=== PATIENT | female | born 1990 | race Caucasian/White ===

== ENCOUNTER 2017-08-20 19:23 | Emergency (ER) | payer MEDICAID, SELFPAY ==
[2017-08-20 19:24] VITALS: BP 140/85; PULSE 97; RESP 16; TEMP 36.8; O2SAT 100
--- NOTE | 2017-08-20 19:39 | EKG12_ITS ---
Test Reason : CP Blood Pressure : / mmHG Vent. Rate : 090 BPM Atrial Rate : 090 BPM P-R Int : 130 ms QRS Dur : 080 ms QT Int : 350 ms P-R-T Axes : 037 039 033 degrees QTc Int : 428 ms Normal sinus rhythm Normal ECG Confirmed by FERCHO JAY MD ([id number]), book editor OLAMIDE TOWNSEND ([id number]) on 08/22/2017 12:48:40 PM Referred By: Confirmed By:FERCHO JAY MD
--- NOTE | 2017-08-20 19:42 | NURSING ---
NO OLD EKG
--- NOTE | 2017-08-20 19:55 | RAD_ITS ---
STUDY: X-RAY CHEST REASON FOR EXAM: Female, 27 years old. Chest pain TECHNIQUE: Single AP portable view of the chest. COMPARISON: None. FINDINGS: The lungs are clear and expanded. There is no demonstrated pleural abnormality. Normal size heart. Normal mediastinum and ryne. Normal visualized pulmonary arteries. Normal visualized aortic arch and descending thoracic aorta. Normal visualized thoracic spine. Normal visualized ribs, clavicles, and shoulders. There is no demonstrated abnormality of the visualized soft tissue structures of the upper abdomen. RAD/Chest 1 View (Portable) IMPRESSION: Normal x-ray examination of the chest. Electronically Signed: Bola Krishna MD at 20:24 EST Tel , Service support ,
[2017-08-20 20:03] LABS: Absolute Lymphocyte Count 2.74 X10^3/ul (0.83-4.51); Absolute Neutrophil Count 4.8 X10^3/uL (2.0-7.7); Basophil# 0.02 X10^3/uL; Basophil% 0.2 % (0-1); Eosinophil# 0.18 X10^3/uL; Eosinophils% 2.2 % (0-5); Hematocrit 37.7 % (37-47); Hemoglobin 12.8 g/dl (12.0-15.0); Lymphocyte # 2.74 X10^3/ul (4.0); Lymphocyte % 33.3 % (19-41); Mean Corpuscular Hgb 28.6 pg (27.0-32.0); Mean Corpuscular Volume 84.3 fL (81-99); Mean Platelet Vol. 9.9 fl (6.2-12.0); Monocyte# 0.47 X10^3/uL; Monocyte% 5.7 % (0-10); Neutrophil # 4.82 X10^3/uL (2.7-7.7); Neutrophil % 58.5 % (47-70); Platelet Count 234 K/mm3 (150-450); RBC Distribution Width CV 12.4 % (11.6-14.6); RBC Distribution Width SD 38.1 fl (35.1-43.9); Red Blood Count 4.47 M/mm3 (4.2-5.4); White Blood Count 8.2 K/mm3 (4.4-11.0)
[2017-08-20 20:04] LABS: POSITIVE COUNT NO; POSITIVE DIFFERENTIAL NO; POSITIVE MORPHOLOGY NO
[2017-08-20 20:22] LABS: D-Dimer Quantitative (DVT/PE) < 0.27 FEU/ug/m (0.27-0.49)
[2017-08-20 20:27] LABS: BUN 12 mg/dL (7-18); Creatinine, Serum 0.67 mg/dL (0.55-1.02); Estimated Creatinine Clearance 106.98 ml/min; Glucose 123 mg/dL (74-106)
[2017-08-20 20:28] LABS: Anion Gap 10 (5-15); BUN/Creat Ratio 17.9 RATIO (10-20); Calcium,Total 8.7 mg/dL (8.5-10.1); Chloride 109 mmol/L (98-107); EST Glomerular Filtration Rate 110 mL/min (>60); Est Glom Filt Rate - Afr Amer 133 mL/min (>60); Potassium 3.7 mmol/L (3.5-5.1); Sodium Level 142 mmol/L (136-145)
--- NOTE | 2017-08-20 20:34 | ED.VISSUMM ---
- ER Visit Summary Date of Service: 08/20/17 Chief Complaint: [Bilateral leg pain and chest pain] History of Present Illness: The patient is a 27 F [presents to the emergency department with complaint of pain in both legs started around 2 PM. Patient described pain from her hips down to her feet bilaterally. Patient states that she has had multiple episodes of similar pain that typically resolves without any treatment. Patient states that after she developed this pain she developed some left-sided chest discomfort which is an achy pain that is similar to pain she has had before when she has anxiety. Patient tells me she is not really concerned about her chest but more concerned about her legs. Patient was worried about blood clots in her legs. Patient states that she had a hernia repair about a month ago and she is on an oral contraceptive. Patient denies any recent travel. Patient does not have a history of PE or DVT.] Physical Examination: [HEENT-PERRLA, EOMI. Cranial nerves II through XII grossly intact. TMs clear. Mucous membranes moist. No adenopathy. Cardiovascular-regular rate and rhythm without murmur or ectopy Lungs-clear to auscultation, chest wall stable without crepitus or subcu emphysema Abdomen-normoactive bowel sounds, soft, nontender, no rebound or rigidity, no peritoneal signs. Back exam-no tenderness on palpation. No erythema or crepitus noted. Negative straight leg raises. Deep tendon reflexes plus 2 out of 4 bilaterally at the patella and Achilles. Patient has normal L5 extension bilaterally. Patient has normal sensation to light touch. Extremities-intact ?4, normal range of motion, normal pulses, atraumatic]. Negative Homans sign bilaterally. No edema, no cellulitis, atraumatic. Test Results: [EKG obtained on arrival showed a sinus rhythm with rate of 90 bpm with no acute ST segment changes. CBC with differential was normal. Chemistries were normal. Troponin was less than 0.02. D-dimer was normal at less than 0.27. Chest x-ray was normal. Emergency Department Course and Treatment: [No treatment indicated] Treatment Plan: [Patient advised to follow-up with her primary care physician within next 3-5 days.] Disposition: Discharged to home in stable condition] Impression: [Bilateral leg womf-udntblmz-vimrjgal uncertain Chest hsvm-orwomnnjfh-fmryejh anxiety related] This note was generated with Dragon dictation software. It may contain incorrect words, spelling, and punctuation that were not noted in review of the chart prior to signing ED Disposition - Plan for ED Patient: Chief Complaint: Chest Pain Referrals: Care Physician,No Primary [Primary Care Provider] -
--- NOTE | 2017-08-20 20:37 | ED.DEP ---
ED Disposition - Plan for ED Patient: Chief Complaint: Chest Pain Instructions: ED Chest Pain NonCardiac Referrals: Care Physician,No Primary [Primary Care Provider] - Johnathan Shepard III, MD [STAFF PHYSICIAN] - 3-5 Days
[2017-08-20 20:41] VITALS: BP 110/77; PULSE 79; RESP 16; O2SAT 98
--- NOTE | 2017-08-20 20:42 | ED.RN ---
REVIEWED D/C INSTRUCTIONS, FOLLOW UP CARE, AND S/S THAT WOULD WARRANT A RETURN TO THE ED WITH PT. PT VERBALIZED AN UNDERSTANDING AND DENIES FURTHER QUESTIONS FOR THIS RN. PT SKIN P/W/D, RESP EVEN AND UNLABORED, PT A&O X 3, NO DISTRESS NOTED. PT AMBULATED OUT OF ED, GAIT STEADY.
== END 2017-08-20 20:45 | disposition home or self-care (01) ==
LOC: ED 19:52
PROVIDERS: Emergency Provider Emergency Medicine
DX: M79.605 Pain in left leg (principal); M79.604 Pain in right leg; R07.9 Chest pain, unspecified
CPT/HCPCS: 71045; 80048; 84484; 85025; 85379; 93005; 99285; A4216

== ENCOUNTER 2017-09-03 13:58 | Emergency (ER) | payer MEDICAID, SELFPAY ==
[2017-09-03 13:59] VITALS: BP 114/74; PULSE 114; RESP 18; TEMP 36.8; O2SAT 97; BMI 29.8
--- NOTE | 2017-09-03 15:07 | ED.DCSUM_ITS ---
- ER Visit Summary Date of Service: 09/03/17 Chief Complaint: Sore throat History of Present Illness: The patient is a 27 F who presents with sore throat since last night. She notes little to no cough. No significant rhinorrhea. No fevers. No nausea vomiting. No rash. Physical Examination: Febrile vital signs are stable Gen: Well-nourished well-developed Head: Normocephalic atraumatic Eyes: Perrl EOMI ENT: TMs clear no rhinorrhea moist mucous membranes mild oral pharyngeal erythema Neck: Supple no lymphadenopathy no JVD nontender CVS: Regular rate rhythm no murmurs normal S1-S2 Respiratory: No distress clear to auscultation bilaterally chest nontender Abdomen: Soft nontender nondistended normal bowel sounds no masses Back: Nontender Extremity: Nontender no edema Skin: Normal color no rash Neuro: alert orientated ?3 CN II-XII intact normal strength sensation reflexes gait cerebellar Psych: Normal affect normal mood Test Results: Strep is negative Emergency Department Course and Treatment: To be discharged home with supportive care Impression: 1. Pharyngitis This note was generated with [employer] dictation software. It may contain incorrect words, spelling, and punctuation that were not noted in review of the chart prior to signing ED Disposition - Plan for ED Patient: Disposition: Home or Assisted Living Chief Complaint: Sore Throat Instructions: ED Pharyngitis Viral Referrals: Care Physician,No Primary [Primary Care Provider] - Teresa Ayers DO [STAFF PHYSICIAN] - 10-14 Days if not better
[2017-09-03 15:14] VITALS: PULSE 99; RESP 16; O2SAT 99
== END 2017-09-03 15:15 | disposition home or self-care (01) ==
PROVIDERS: Emergency Provider Emergency Medicine
DX: J02.9 Acute pharyngitis, unspecified (principal); M79.1 Myalgia
CPT/HCPCS: 87880; 99282

== ENCOUNTER 2017-09-09 02:29 | Emergency (ER) | payer MEDICAID, SELFPAY ==
[2017-09-09 02:30] VITALS: BP 134/84; PULSE 73; RESP 18; TEMP 36.6; O2SAT 100; BMI 30.8
--- NOTE | 2017-09-09 02:38 | ED.VISSUMM ---
- ER Visit Summary Date of Service: 09/09/17 Chief Complaint: [] Midthoracic back pain History of Present Illness: The patient is a 27 F complaining of midthoracic back pain that came on 8 PM gradually over the course of minutes. She felt fine prior. No urinary symptoms. She has had this multiple times in the past. Seen in June in our emergency department at that time. Given a muscle relaxant. Try that tonight with minimal relief. Came in for further evaluation. Physical Examination: Vital signs reviewed General: Well-nourished well-developed Head: Normocephalic atraumatic Eyes: Pupils equal round and reactive to light extraocular movements intact ENT: TMs clear no hemotympanum no trauma Neck: Nontender full range of motion Cardiovascular: Regular rate rhythm no murmurs normal S1-S2 Respiratory: No distress clear to auscultation bilaterally chest nontender Abdomen: Soft nontender nondistended normal bowel sounds no masses Back: Midthoracic paraspinals and right-sided lower ribs. No CVA tenderness. Mild decreased range of motion secondary to pain. Extremities: Nontender active range of motion ?4 extremities no trauma Skin: Normal color no trauma Neuro alert oriented cranial nerves II through XII intact normal strength sensation reflexes Test Results: [] Emergency Department Course and Treatment: I feel the patient has musculoskeletal back pain. I do not feel she needs lab work. I do not feel she has a kidney stone. She was given oxycodone here and will use Tylenol and ice at home. Do not feel she needs imaging. Treatment Plan: [] Disposition: [] Impression: [] Midthoracic back pain This note was generated with [employer] dictation software. It may contain incorrect words, spelling, and punctuation that were not noted in review of the chart prior to signing ED Disposition - Plan for ED Patient: Chief Complaint: Back Referrals: Care Physician,No Primary [Primary Care Provider] -
--- NOTE | 2017-09-09 02:40 | ED.DEP ---
ED Disposition - Plan for ED Patient: Disposition: Home or Assisted Living Chief Complaint: Back Instructions: ED Spasm Back No Trauma Referrals: Care Physician,No Primary [Primary Care Provider] -
[2017-09-09] MEDS: oxyCODONE 5 MG Tablet 10 MG PO (02:42)
[2017-09-09 02:50] VITALS: RESP 18
== END 2017-09-09 02:50 | disposition home or self-care (01) ==
LOC: ED 02:43
PROVIDERS: Emergency Provider Emergency Medicine
DX: M54.6 Pain in thoracic spine (principal)
CPT/HCPCS: 99283

== ENCOUNTER 2017-10-06 20:48 | Emergency (ER) | payer MEDICAID, SELFPAY ==
[2017-10-06 20:49] VITALS: BP 116/67; PULSE 134; RESP 18; TEMP 36.4; O2SAT 96; BMI 29.1
[2017-10-06] MEDS: Ondansetron ODT 4 MG Tablet PO (21:22)
[2017-10-06 21:33] LABS: Internal QC Validated? YES +Cl - CLEAR BKGD
[2017-10-06 21:34] LABS: Pregnancy, Urine Negative Negative
[2017-10-06] MEDS: Acetaminophen 500 MG Tablet 1000 MG PO (21:45)
--- NOTE | 2017-10-06 22:20 | ED.VISSUMM ---
- ER Visit Summary Date of Service: 10/06/17 Chief Complaint: Nausea vomiting diarrhea and cough History of Present Illness: The patient is a 27 F presenting for evaluation secondary nausea vomiting diarrhea and cough. Patient states that since 3:00 this morning she had a sudden onset of diarrhea up to 4 episodes, vomiting up to 5 episodes, and a nonproductive dry cough. Patient states that she has been having subjective fevers with this and generalized myalgias. She denies any headaches neck stiffness. She denies any rashes. She denies any abdominal pain. Patient states that in July of this year she did have a hernia surgery, she states that she recovered well from that without any sort of complications. Patient is otherwise healthy and only takes oral contraceptives. Physical Examination: Vital signs are notable for a heart rate of 134. Well-nourished female nontoxic appearing no acute distress sitting comfortably in the bed. Head normocephalic atraumatic. Oropharynx clear, moist mucous membranes, no evidence of posterior pharyngeal erythema. Neck was supple. Heart was tachycardic and regular. Lung sounds clear to auscultation bilaterally. Abdomen shows a well-healed surgical scar just superior to the umbilicus and was nontender with normal bowel sounds. No skin rashes noted. Remainder physical otherwise unremarkable. Test Results: Urine hCG found to be negative. Influences swab found to be negative. Emergency Department Course and Treatment: Patient presented with nausea vomiting diarrhea and cough. She was checked for influenza and was found to be negative. Per the patient's request she had a test run that was also negative. Patient was given Tylenol and Zofran in the emergency department did have improvement of her heart rate, still states that she feels ill but is otherwise nontoxic on reevaluation at 2223. At this point I believe the patient likely has an element of viral gastroenteritis and that she safely can be discharged. Disposition: Discharge Impression: 1. Gastroenteritis This note was generated with [employer] dictation software. It may contain incorrect words, spelling, and punctuation that were not noted in review of the chart prior to signing ED Disposition - Plan for ED Patient: Disposition: Home or Assisted Living Chief Complaint: General Illness Diagnosis: Gastroenteritis Instructions: ED Gastroenteritis Viral Prescriptions: proMETHazine tablet [Phenergan] 25 mg PO Q6H PRN PRN #10 tab PRN Reason: Nausea Referrals: Fast,Francesca, DO [NON-STAFF] - As Needed
--- NOTE | 2017-10-06 22:27 | ED.DCSUM_ITS ---
- ER Visit Summary Date of Service: 10/06/17 Chief Complaint: Nausea vomiting diarrhea and cough History of Present Illness: The patient is a 27 F presenting for evaluation secondary nausea vomiting diarrhea and cough. Patient states that since 3:00 this morning she had a sudden onset of diarrhea up to 4 episodes, vomiting up to 5 episodes, and a nonproductive dry cough. Patient states that she has been having subjective fevers with this and generalized myalgias. She denies any headaches neck stiffness. She denies any rashes. She denies any abdominal pain. Patient states that in July of this year she did have a hernia surgery , she states that she recovered well from that without any sort of complications. Patient is otherwise healthy and only takes oral contraceptives. Physical Examination: Vital signs are notable for a heart rate of 134. Well- nourished female nontoxic appearing no acute distress sitting comfortably in the bed. Head normocephalic atraumatic. Oropharynx clear, moist mucous membranes, no evidence of posterior pharyngeal erythema. Neck was supple. Heart was tachycardic and regular. Lung sounds clear to auscultation bilaterally. Abdomen shows a well-healed surgical scar just superior to the umbilicus and was nontender with normal bowel sounds. No skin rashes noted. Remainder physical otherwise unremarkable. Test Results: Urine hCG found to be negative. Influences swab found to be negative. Emergency Department Course and Treatment: Patient presented with nausea vomiting diarrhea and cough. She was checked for influenza and was found to be negative. Per the patient's request she had a test run that was also negative. Patient was given Tylenol and Zofran in the emergency department did have improvement of her heart rate, still states that she feels ill but is otherwise nontoxic on reevaluation at 2223. At this point I believe the patient likely has an element of viral gastroenteritis and that she safely can be discharged. Disposition: Discharge Impression: 1. Gastroenteritis This note was generated with [employer] dictation software. It may contain incorrect words, spelling, and punctuation that were not noted in review of the chart prior to signing ED Disposition - Plan for ED Patient: Disposition: Home or Assisted Living Chief Complaint: General Illness Diagnosis: Gastroenteritis Instructions: ED Gastroenteritis Viral Prescriptions: proMETHazine tablet [Phenergan] 25 mg PO Q6H PRN PRN #10 tab PRN Reason: Nausea Referrals: Fast,Francesca, DO [NON-STAFF] - As Needed
[2017-10-06 22:31] VITALS: RESP 18
== END 2017-10-06 22:32 | disposition home or self-care (01) ==
PROVIDERS: Emergency Provider Emergency Medicine
DX: K52.9 Noninfective gastroenteritis and colitis, unspecified (principal)
CPT/HCPCS: 81025; 87804; 99283

== ENCOUNTER 2017-11-03 20:43 | Emergency (ER) | payer MEDICAID, SELFPAY ==
[2017-11-03 20:44] VITALS: BP 137/96; PULSE 83; RESP 17; TEMP 36.6; O2SAT 98; BMI 30.3
--- NOTE | 2017-11-03 21:18 | ED.DCSUM_ITS ---
- ER Visit Summary Date of Service: 11/03/17 Chief Complaint: Back pain History of Present Illness: The patient is a 27 F who presents with back pain that began today. Patient states she has had similar episodes of this back pain in the past that was attributed to musculoskeletal pain. Patient states the pain is over the lower thoracic and radiates around her right lower ribs to her anterior chest wall. Patient states the pain is constant and aching but sharp at times. Patient states the pain is worse with sitting. Patient states nothing seems to help the pain. Patient denies any abdominal pain. Patient denies any paresthesias or weakness. Patient denies any radiation of the pain. Patient denies any bowel or bladder changes. Patient denies any saddle anesthesia. Physical Examination: Vital signs are stable. Patient is afebrile. Patient is in no acute distress. Oral mucosa is pink and moist. Neck is supple. Heart was regular rate and rhythm. Lungs are clear and equal bilaterally. Abdomen is soft and nontender. Musculoskeletal exam reveals tenderness over the lower thoracic spine and right paraspinal muscles. There is also some tenderness along the right lower ribs. There is no bony crepitance or step-off. Range of motion of the thoracic spine was limited secondary to pain. Strength is 5/5 bilateral. There are no sensory deficits noted. Straight leg raises were negative bilaterally. Emergency Department Course and Treatment: Patient was given a dose of Naprosyn here. Patient was given a prescription for Naprosyn. Patient was instructed to use ice to the area. Patient was instructed to follow-up with her primary care physician in 7-10 days. Patient understood and was agreeable with the plan. All questions were answered. Disposition: Discharge home Impression: Acute thoracic strain This note was generated with [employer] dictation software. It may contain incorrect words, spelling, and punctuation that were not noted in review of the chart prior to signing ED Disposition - Plan for ED Patient: Disposition: Home or Assisted Living Chief Complaint: Back Diagnosis: Thoracic myofascial strain Instructions: ED Neck Back Pain General Prescriptions: Naproxen [Naprosyn] 500 mg PO BID PRN #20 tab Referrals: Care Physician,No Primary [Primary Care Provider] - Steve Mccullough MD [STAFF PHYSICIAN] -
[2017-11-03] MEDS: Naproxen 500 MG Tablet PO (21:48)
[2017-11-03 22:03] VITALS: BP 129/78; PULSE 78; RESP 16; O2SAT 98
== END 2017-11-03 22:04 | disposition home or self-care (01) ==
PROVIDERS: Emergency Provider Emergency Medicine
DX: S29.012A Strain of muscle and tendon of back wall of thorax, initial encounter (principal); X58.XXXA Exposure to other specified factors, initial encounter; Y93.9 Activity, unspecified; Y92.89 Other specified places as the place of occurrence of the external cause; Y99.9 Unspecified external cause status
CPT/HCPCS: 99283

== ENCOUNTER 2017-11-28 02:04 | Emergency (ER) | payer MEDICAID, SELFPAY ==
[2017-11-28 02:05] VITALS: BP 133/86; PULSE 76; RESP 14; TEMP 37.1; O2SAT 98; BMI 32.4
--- NOTE | 2017-11-28 02:17 | ED.VISSUMM ---
- ER Visit Summary Date of Service: 11/28/17 Chief Complaint: [] Thoracic back pain History of Present Illness: The patient is a 27 F with a history of chronic thoracic back pain. She gets exacerbations of throbbing aching cramping pain. Of the last 3 hours she has had pain in her right midthoracic. She was seen last month in the month prior in the department for similar pain. She has not followed up. She denies any associated symptoms. Physical Examination: [] Vital signs reviewed General: Well-nourished well-developed Head: Normocephalic atraumatic Eyes: Pupils equal round and reactive to light extraocular movements intact ENT: TMs clear no hemotympanum no trauma Neck: Nontender full range of motion Cardiovascular: Regular rate rhythm no murmurs normal S1-S2 Respiratory: No distress clear to auscultation bilaterally chest nontender Abdomen: Soft nontender nondistended normal bowel sounds no masses Back: Is right midthoracic paraspinals without swelling or deformity. No midline tenderness Extremities: Nontender active range of motion ?4 extremities no trauma Skin: Normal color no trauma Neuro alert oriented cranial nerves II through XII intact normal strength sensation reflexes Test Results: [] Emergency Department Course and Treatment: [] She given a shot of morphine. She will rest and ice and will follow up Treatment Plan: [] Disposition: [] Impression: [] Midthoracic musculoskeletal back pain This note was generated with [employer] dictation software. It may contain incorrect words, spelling, and punctuation that were not noted in review of the chart prior to signing ED Disposition - Plan for ED Patient: Chief Complaint: Back Referrals: Care Physician,No Primary [Primary Care Provider] -
--- NOTE | 2017-11-28 02:19 | ED.DEP ---
ED Disposition - Plan for ED Patient: Disposition: Home or Assisted Living Chief Complaint: Back Instructions: ED Flank Pain Uncertain Cause Prescriptions: Ibuprofen 800 mg PO TID #30 tab Referrals: Care Physician,No Primary [Primary Care Provider] - Devonte Maldonado DO [NON CLINICAL AFFILIATE] -
[2017-11-28] MEDS: Morphine 4 MG/ML Syringe IM (02:27)
[2017-11-28 02:48] VITALS: PULSE 64; RESP 12
== END 2017-11-28 02:49 | disposition home or self-care (01) ==
PROVIDERS: Emergency Provider Emergency Medicine
DX: M54.6 Pain in thoracic spine (principal)
CPT/HCPCS: 96372; 99282

== ENCOUNTER 2018-05-06 19:24 | Emergency (ER) | payer MEDICAID, SELFPAY ==
[2018-05-06 19:26] VITALS: BP 150/79; PULSE 82; RESP 17; TEMP 36.3; O2SAT 97; BMI 31.0
--- NOTE | 2018-05-06 21:34 | ED.VISSUMM ---
- ER Visit Summary Date of Service: 05/06/18 Chief Complaint: Sore throat History of Present Illness: The patient is a 28 F who presents with a sore throat that has been getting worse over the past 3 days. Patient describes the pain as stabbing and burning. Patient states the pain is worse with swallowing and talking. Patient admits to some myalgias. Patient denies any headaches, sinus pressure, or rhinorrhea. Patient denies any cough. Patient admits to subjective chills but denies any fevers. Patient denies any sick contacts. Physical Examination: Vital signs are stable. Patient is afebrile. Patient is in no acute distress. Oral mucosa is pink and moist. There is erythema of the tonsils bilaterally. There are no exudates noted. Tympanic membranes are clear bilaterally. Neck is supple. Trachea is midline. There is some mild anterior cervical lymphadenopathy. Heart was regular rate and rhythm. Lungs are clear and equal bilaterally. There is good respiratory effort noted. Cranial nerves II through XII are intact. There are no focal motor or sensory deficits noted. The remaining physical exam is within normal limits. Test Results: Rapid strep was obtained and was negative. Emergency Department Course and Treatment: Patient was advised that this is most likely a viral pharyngitis. Patient was instructed to continue drinking plenty of fluids. Patient was instructed to take Tylenol or ibuprofen as needed for fevers or aches. Patient was instructed to follow-up with her primary care physician in 7-10 days. Patient understood and was agreeable with the plan. All questions were answered. Disposition: Discharge home Impression: Viral pharyngitis This note was generated with [employer] dictation software. It may contain incorrect words, spelling, and punctuation that were not noted in review of the chart prior to signing ED Disposition - Plan for ED Patient: Disposition: Home or Assisted Living Chief Complaint: Sore Throat Diagnosis: Acute viral pharyngitis Instructions: ED Pharyngitis Viral Referrals: Care Physician,No Primary [Primary Care Provider] -
[2018-05-06 21:41] VITALS: BP 117/90; PULSE 78; RESP 16; O2SAT 98
== END 2018-05-06 21:43 | disposition home or self-care (01) ==
PROVIDERS: Emergency Provider Emergency Medicine
DX: J02.9 Acute pharyngitis, unspecified (principal); R68.83 Chills (without fever); M79.10 Myalgia, unspecified site
CPT/HCPCS: 87880; 99282

== ENCOUNTER 2018-09-16 22:37 | Emergency (ER) | payer MEDICAID, SELFPAY ==
[2018-09-16 22:38] VITALS: BP 143/79; PULSE 80; RESP 14; TEMP 36.1; O2SAT 100; BMI 30.2
--- NOTE | 2018-09-16 23:01 | ED.VISSUMM ---
- ER Visit Summary Date of Service: 09/16/18 Chief Complaint: Right-sided chest pain History of Present Illness: The patient is a 28 F who presents with pain over the right side of her chest and right upper abdomen that began yesterday. Patient states the pain is sharp and stabbing. Patient states the pain improves when someone rubs it. Patient denies any nausea or vomiting. Patient denies any fevers or chills. Patient states her pain is also worse with deep breathing. Patient denies any urinary complaints. Patient denies any rashes. Physical Examination: Vital signs are stable. Patient is afebrile. Patient is in no acute distress. Oral mucosa is pink and moist. Neck is supple. Trachea is midline. No JVD noted. Heart was regular rate and rhythm. Lungs are clear and equal bilateral. Abdomen is soft. Bowel sounds are normal. There is tenderness over the epigastric area, right upper quadrant, and right lower chest area. There is no rebound or guarding noted. There is no bony crepitance or step-off over the lower ribs. Cranial nerves II through XII are intact. There are no focal motor or sensory deficits noted. The remaining physical exam is within normal limits. Test Results: CBC was normal. Comprehensive metabolic profile was essentially within normal limits. Urinalysis showed occult blood of 250 with 10-[address] scan of the abdomen and pelvis was obtained. There are ventral abdominal wall hernia and umbilical hernia containing fat. There is no bowel noted. There is some stranding noted in the ventral hernia. There is also cholelithiasis noted. Emergency Department Course and Treatment: Patient was given an injection of Toradol here. Patient states she had minimal relief with this. Patient was given a dose of morphine. Patient states she did have ventral herniorrhaphies done in the past. Patient denies any pain over this area. Patient was advised that this pain may be related to the gallstones. Patient was instructed to eat a bland diet. Patient was instructed to avoid fried foods, greasy foods, or other high fat containing foods. Patient was instructed to follow-up with her primary care physician in 5-7 days. Patient understood and was agreeable with the plan. All questions were answered. Disposition: Discharge home Impression: 1. Right upper quadrant abdominal pain 2. Cholelithiasis This note was generated with [employer] software. It may contain incorrect words, spelling, and punctuation that were not noted in review of the chart prior to signing ED Disposition - Plan for ED Patient: Disposition: Home or Assisted Living Diagnosis: Right upper quadrant abdominal pain Prescriptions: Naproxen [Naprosyn] 500 mg PO BID PRN #20 tablet Referrals: Care Physician,No Primary [NON-STAFF] - Additional Instructions: Your prescription was transmitted electronically to [email or web address] which is listed as your preferred pharmacy.
[2018-09-16] MEDS: Ondansetron 4 MG/2 ML Vial IV (23:13)
[2018-09-16] MEDS: 0.9% Normal Saline 1,000 ML 1000 ML IV (23:13)
[2018-09-16 23:22] LABS: Absolute Lymphocyte Count 2.47 X10^3/ul (0.83-4.51); Absolute Neutrophil Count 6.4 X10^3/uL (2.0-7.7); Basophil# 0.03 X10^3/uL; Basophil% 0.3 % (0-1); Eosinophils% 2.1 % (0-5); Hematocrit 38.3 % (37-47); Hemoglobin 12.6 g/dl (12.0-15.0); Lymphocyte # 2.47 X10^3/ul (4.0); Lymphocyte % 25.7 % (19-41); Mean Corp Hgb Conc 32.9 g/gl (32-36); Mean Corpuscular Hgb 27.8 pg (27.0-32.0); Mean Corpuscular Volume 84.4 fL (81-99); Monocyte# 0.53 X10^3/uL; Monocyte% 5.5 % (0-10); Neutrophil # 6.37 X10^3/uL (2.7-7.7); Neutrophil % 66.3 % (47-70); Platelet Count 258 K/mm3 (150-450); RBC Distribution Width CV 12.7 % (11.6-14.6); RBC Distribution Width SD 38.7 fl (35.1-43.9); Red Blood Count 4.54 M/mm3 (4.2-5.4); White Blood Count 9.6 K/mm3 (4.4-11.0)
[2018-09-16 23:23] LABS: POSITIVE COUNT NO; POSITIVE DIFFERENTIAL NO; POSITIVE MORPHOLOGY NO
[2018-09-16 23:29] LABS: Mucous, Urine 0 SEEN /hpf (<or=2+)
[2018-09-16 23:31] LABS: Color, Urine Yellow (Yellow); Glucose, Dipstick Normal (Normal); Ketone-Dipstick Negative (Negative); Leukocyte Esterase-Dipstick 100 /ul (Negative); Nitrite-Dipstick Negative (Negative); Occult Blood-Urine 250 /ul (Negative); Protein-Dipstick 100 mg/dl (Negative); Specific Gravity, Urine 1.025 (1.002-1.030); Urine Bilirubin Dipstick Negative (Negative); Urine Clarity Sl. Cloudy (Clear); Urine Urobilinogen Normal (Normal)
[2018-09-16 23:36] LABS: Internal QC Validated? YES +Cl - CLEAR BKGD; Pregnancy, Urine Negative Negative
[2018-09-16 23:38] LABS: ALB/GLOB Ratio 0.9 RATIO (0.9-2.4); AST(SGOT) 23 U/L (15-37); Alanine Aminotransfer ALT/SGPT 35 U/L (13-56); Albumin, Serum 3.6 g/dL (3.2-5.0); Alkaline Phosphatase 57 U/L (45-117); Anion Gap 8 (5-15); BUN 13 mg/dL (7-18); BUN/Creat Ratio 18.6 RATIO (10-20); Calcium,Total 8.6 mg/dL (8.5-10.1); Chloride 107 mmol/L (98-107); EST Glomerular Filtration Rate 105 mL/min (>60); Est Glom Filt Rate - Afr Amer 126 mL/min (>60); Estimated Creatinine Clearance 101.48 ml/min; Globulin 3.9 g/dL (2.2-4.2); Glucose 128 mg/dL (74-106); Lipase 146 U/L (73-393); Potassium 3.4 mmol/L (3.5-5.1); Protein, Total 7.5 g/dL (6.4-8.2); Sodium Level 139 mmol/L (136-145)
[2018-09-16 23:44] LABS: Bacteria RARE /hpf (None Seen); Squamous Epithelial Cells - UA 0-5 SEEN /hpf (5-10)
[2018-09-16 23:45] LABS: Red Blood Cells-Urine 10-25 SEEN /hpf (0-5); White Blood Cells 0-5 SEEN /hpf (0-5)
--- NOTE | 2018-09-17 | CT_ITS ---
STUDY: CT ABDOMEN AND PELVIS WITHOUT CONTRAST REASON FOR EXAM: Female, 28 years old. Right-sided abdominal pain RADIATION DOSAGE (If Supplied By Facility): CTDIvol = ( 12.15 ) mGy, DLP = ( 655.65 ) mGycm TECHNIQUE: Transaxial images were obtained from the dome of the diaphragm to the symphysis pubis without oral contrast, and without intravenous contrast. Sagittal and coronal images were reconstructed. Individualized dose optimization techniques were used for this CT. COMPARISON: None. FINDINGS: Evaluation limited by lack of IV and oral contrast. The visualized lung bases are unremarkable. The visualized portions of the heart are within normal limits. There is decreased attenuation of the liver consistent with steatosis. Hepatomegaly. There are multiple gallstones. Normal unenhanced spleen. Normal unenhanced pancreas. Normal unenhanced bilateral adrenal glands. Subcentimeter low-attenuation structure left kidney too small to characterize by CT criteria however statistically likely represents a cyst. No hydronephrosis or nephrolithiasis. Otherwise grossly unremarkable unenhanced kidneys. Normal visualized stomach. Normal small intestine. Normal colon. The appendix is visualized and appears normal. Normal unenhanced abdominal aorta. Normal unenhanced inferior vena cava. Normal retroperitoneum. Normal urinary bladder. IUD within the uterus. Small low-attenuation structures within the bilateral adnexa likely ovarian. Pelvic ultrasound may be obtained to further evaluate as clinically indicated. Ventral abdominal wall fat-containing hernia. There is some mild stranding of the fat. Small fat-containing umbilical hernia. There are diffuse degenerative changes of the visualized lumbar spine. CT/Abdomen/Pelvis without Cont IMPRESSION: No hydronephrosis or nephrolithiasis. Hepatomegaly and hepatic steatosis The appendix is visualized and appears grossly unremarkable. Cholelithiasis. This can be further evaluated with right upper quadrant ultrasound. Ventral abdominal wall fat-containing hernia. There is some mild stranding in the fat. This could represent incarcerated or strangulated fat within the hernia. There is no bowel within the hernia. Other findings as discussed above. Electronically Signed: Max Lainez, at 1:34 EDT Tel , Service support ,
[2018-09-17] MEDS: Ketorolac 30 MG/ML Syringe IV (00:07)
[2018-09-17 00:48] VITALS: BP 117/73; PULSE 62; RESP 16; O2SAT 100
[2018-09-17] MEDS: oxyCODONE 5 MG Tablet PO (02:24)
[2018-09-17 02:33] VITALS: BP 135/78; PULSE 69; RESP 16; O2SAT 99
== END 2018-09-17 02:34 | disposition home or self-care (01) ==
PROVIDERS: Emergency Provider Emergency Medicine; Family Provider Nurse Practitioner Family; PCP Nurse Practitioner Family
DX: R10.11 Right upper quadrant pain (principal); K80.20 Calculus of gallbladder without cholecystitis without obstruction; K42.9 Umbilical hernia without obstruction or gangrene
CPT/HCPCS: 74176; 80053; 81001; 81025; 83690; 85025; 96361; 96374; 96375; 99284; J7030; A4216; J2405

== ENCOUNTER 2018-11-08 16:57 | Emergency (ER) | payer MEDICAID, SELFPAY ==
[2018-11-08 16:58] VITALS: BP 133/80; PULSE 80; RESP 16; TEMP 36.7; O2SAT 98; BMI 30.4
--- NOTE | 2018-11-08 17:39 | US_ITS ---
STUDY: ABDOMINAL ULTRASOUND - RIGHT UPPER QUADRANT REASON FOR VISIT: Female, 28 years old. Right upper quadrant pain TECHNIQUE: Ultrasound evaluation of the right upper quadrant was performed with real-time and static zapien-scale imaging. TECHNICAL QUALITY: Adequate. COMPARISON: None. FINDINGS: Liver: The liver measures 18.7 cm. There is increased echogenicity consistent with fatty infiltration. The bile ducts are within normal limits. There is hepatic color flow. The direction of portal flow is hepatopetal. There is no demonstrated mass lesion. Gallbladder: Normal distended gallbladder. The gallbladder wall measures 3 mm. There is a positive sonographic Porter's sign. There is pericholecystic fluid. There are multiple echogenic structures within the gallbladder, consistent with multiple gallstones. Common Bile Duct (C.B.D.): The common bile duct measures 5 mm. Pancreas: Normal size of the head, body and tail of the pancreas. There is normal echogenicity of the pancreas. There is no demonstrated pancreatic mass or cyst. Right Kidney: Normal size of the right kidney. The right kidney measures 11.9 x 4.9 x 4.0 cm. Normal renal cortex. The right cortex measures 1.5 cm. There is no demonstrated renal mass or cyst. There is no right hydronephrosis. US/Gallbladder IMPRESSION: Multiple gallstones with mild pericholecystic fluid and positive Porter sign. Fatty liver. Electronically Signed: Michael Christina MD at 19:00 EDT Tel , Service support ,
[2018-11-08] MEDS: Ondansetron 4 MG/2 ML Vial IV (17:54)
[2018-11-08] MEDS: 0.9% Normal Saline 1,000 ML 1000 ML IV (17:54)
[2018-11-08] MEDS: Ketorolac 30 MG/ML Syringe IV (17:54)
[2018-11-08 18:03] LABS: Absolute Lymphocyte Count 2.62 X10^3/ul (0.83-4.51); Absolute Neutrophil Count 6.8 X10^3/uL (2.0-7.7); Basophil# 0.03 X10^3/uL; Basophil% 0.3 % (0-1); Eosinophil# 0.14 X10^3/uL; Eosinophils% 1.4 % (0-5); Hematocrit 37.8 % (37-47); Hemoglobin 12.8 g/dl (12.0-15.0); Lymphocyte # 2.62 X10^3/ul (4.0); Lymphocyte % 25.8 % (19-41); Mean Corp Hgb Conc 33.9 g/gl (32-36); Mean Corpuscular Hgb 27.5 pg (27.0-32.0); Mean Corpuscular Volume 81.3 fL (81-99); Mean Platelet Vol. 10.1 fl (6.2-12.0); Monocyte# 0.55 X10^3/uL; Monocyte% 5.4 % (0-10); Neutrophil # 6.79 X10^3/uL (2.7-7.7); Neutrophil % 66.8 % (47-70); Platelet Count 270 K/mm3 (150-450); RBC Distribution Width CV 12.7 % (11.6-14.6); Red Blood Count 4.65 M/mm3 (4.2-5.4); White Blood Count 10.2 K/mm3 (4.4-11.0)
[2018-11-08 18:04] LABS: POSITIVE COUNT NO; POSITIVE DIFFERENTIAL NO; POSITIVE MORPHOLOGY NO
[2018-11-08 18:52] LABS: Internal QC Validated? YES +Cl - CLEAR BKGD; Pregnancy, Serum, hCG Quali. NEGATIVE Negative
[2018-11-08 19:00] VITALS: PULSE 83; RESP 14
[2018-11-08 19:01] LABS: ALB/GLOB Ratio 0.9 RATIO (0.9-2.4); AST(SGOT) 21 U/L (15-37); Alanine Aminotransfer ALT/SGPT 28 U/L (13-56); Albumin, Serum 3.6 g/dL (3.2-5.0); Alkaline Phosphatase 63 U/L (45-117); Anion Gap 4 (5-15); BUN 12 mg/dL (7-18); BUN/Creat Ratio 16.8 RATIO (10-20); Calcium,Total 9.1 mg/dL (8.5-10.1); Chloride 106 mmol/L (98-107); Creatinine, Serum 0.71 mg/dL (0.55-1.02); EST Glomerular Filtration Rate 102 mL/min (>60); Est Glom Filt Rate - Afr Amer 123 mL/min (>60); Estimated Creatinine Clearance 100.05 ml/min; Globulin 3.9 g/dL (2.2-4.2); Glucose 97 mg/dL (74-106); Lipase 170 U/L (73-393); Potassium 3.7 mmol/L (3.5-5.1); Protein, Total 7.5 g/dL (6.4-8.2); Sodium Level 140 mmol/L (136-145)
--- NOTE | 2018-11-08 20:04 | ED.DCSUM_ITS ---
- ER Visit Summary Date of Service: 11/08/18 Chief Complaint: Abdominal pain History of Present Illness: The patient is a 28 F with right upper quadrant pain and history of gallstones. Denies fever or jaundice. Reports increasing pain today. Worse with food. Physical Examination: Vitals unremarkable. Patient nontoxic and in no acute distress. Skin normal in color without jaundice. Abdomen tender in the right upper quadrant. No guarding or rebound. Heart regular. Lungs clear. Test Results: CBC, CMP, lipase unremarkable. Patient has gallstones on ultrasound as well as pericholecystic fluid and a positive sonographic Porter sign. Emergency Department Course and Treatment: Patient treated with fluids, nausea medicine, and pain medicine. On reevaluation, patient is feeling well. Her labs and vital signs are reassuring. Her ultrasound is concerning that she is at risk for cholecystitis. I advised that if her symptoms are severe, I can talk to surgery and try to get her admitted. Patient would like to try to follow-up as an outpatient. She does not want to be admitted. I spoke with Dr. Barrientos. I feel that the patient will likely need a cholecystectomy at some point. Patient would like to try to follow-up as an outpatient. She will see the patient as follow-up. I educated the patient about cholecystitis, and she will return if she has any issues. Treatment Plan: As above Disposition: Discharge Impression: 1. Biliary Colic This note was generated with [employer] dictation software. It may contain incorrect words, spelling, and punctuation that were not noted in review of the chart prior to signing ED Disposition - Plan for ED Patient: Disposition: Home or Assisted Living Instructions: ED Abdominal Pain Gallstone Poss Prescriptions: Ondansetron [Zofran Odt] 4 mg PO Q8H PRN PRN #10 tab PRN Reason: Nausea Ibuprofen [Motrin] 800 mg PO TID PRN PRN #20 tab PRN Reason: Pain Referrals: Tiffany Barrientos MD [STAFF PHYSICIAN] -
[2018-11-08 20:26] VITALS: BP 121/74; PULSE 78; RESP 16; O2SAT 98
== END 2018-11-08 20:27 | disposition home or self-care (01) ==
LOC: ED 17:46
PROVIDERS: Emergency Provider Emergency Medicine; Family Provider Nurse Practitioner Family; PCP Nurse Practitioner Family
DX: K80.50 Calculus of bile duct without cholangitis or cholecystitis without obstruction (principal)
CPT/HCPCS: 76705; 80053; 83690; 84703; 85025; 96361; 96374; 96375; 99283; J7030; A4216; J2405

== ENCOUNTER 2020-12-29 13:01 | Emergency (ER) | payer MEDICAID, SELFPAY ==
[2020-12-29 13:01] VITALS: BP 139/95; PULSE 120; RESP 16; TEMP 36.2; O2SAT 98; BMI 33.7
--- NOTE | 2020-12-29 13:31 | EX.ED.VISEXT ---
HPI History of Present Illness Chief Complaint: Bite Informant: patient Occured/Mechanism Comment: Dog bite Onset/Context/Timing Onset: Today Context: Sudden Onset Timing: Continuous Quality of Pain: Dull Current Severity: Mild Maximum Severity: Mild Associated Symptoms Associated Symptoms: Negative for Parasthesia, Weakness and Loss of Funtion Narrative Narrative: Patient presents with dog bite to the mid forearm. She states it was her dog. The dog has been vaccinated. The patient is unsure of her last tetanus, but is very upfront she does not want 1. She states she was playing with the dog and it bit her on the arm. She denies any other symptoms. She is not on anticoagulants. Tetanus Immunization: Unknown ROS ROS ED Constitutional Constitutional ED: Denies chills or fever(s) Eyes Eyes: Denies blurry vision or change in vision ENT ENT ED: Denies ear pain or sore throat Cardiovascular Cardiovascular: Denies chest pain or palpitations Respiratory/Chest Respiratory/Chest: Denies cough, dyspnea or dyspnea on exertion Gastrointestinal Gastrointestinal: Denies abdominal pain, nausea or vomiting Genitourinary Genitourinary ED: Denies dysuria or urinary frequency Musculoskeletal Musculoskeletal: Denies arthralgias or myalgias Integumentary Denies rash Neurologic Neurologic: Denies headache(s) or paresthesias Psychiatric Psychiatric: Denies anxiety or depression Endocrine Endocrinology: Denies polydipsia or polyuria Allergic/Immunologic Allergic/Immunologic ED: Denies urticaria PFSH PFSH Home Medications naproxen 500 mg PO BID PRN #20 tab 09/17/18 [Rx Last Taken Unknown] ibuprofen 800 mg PO TID PRN PRN #20 tab 11/08/18 [Rx Last Taken Unknown] ondansetron 4 mg PO Q8H PRN PRN #10 tab 11/08/18 [Rx Last Taken Unknown] amoxicillin-pot clavulanate 875 mg PO Q12H #14 tablet 12/29/20 [Rx Last Taken Unknown] Allergy/AdvReac Type Severity Reaction Status Date / Time morphine AdvReac Itching Verified 12/29/20 13:03 Social History Smoking Status: Never smoker EXAM Physical Exam Const Vital Signs: 12/29/20 13:01 Temperature 97.1 F L Temperature Source Temporal Pulse Rate 120 H Respiratory Rate 16 Blood Pressure 139/95 H Blood Pressure Mean 109 Pulse Ox 98 Oxygen Delivery Method Room Air Positive well nourished and well developed General Appearance ED: well developed HEENT Reports normocephalic, head/scalp atraumatic and moist mucous membranes Eyes PERRL and EOMs intact bilaterally Neck no lymphadenopathy and supple General: Negative for tenderness Chest Wall inspection of chest normal Resp normal respiratory effort and clear to auscultation bilaterally Cardio regular rate, regular rhythm and no murmurs GI normal to inspection, nondistended, normoactive bowel sounds Palpation: Negative for tender, guarding or rebound tenderness present Back/Spine no CVA tenderness Cervical Spine: Negative for cervical spine tenderness Thoracic Spine / Upper Back: Negative for thoracic spinal tenderness Extremity Extremity Narrative: Patient does have a 1 cm full-thickness laceration volar aspect of the right forearm. There were a few superficial abrasions. Pulses are normal. There is no active bleeding. Compartments are soft. General Extremety ED: Negative for tenderness Neuro oriented x3 and CN's II-XII intact bilaterally Neuro Narrative: No focal deficits appreciated. Sensorium / Orientation: alert Psych mental status grossly normal Skin no rashes or lesions noted, no wounds and skin turgor normal MDM MDM MDM Narrative Medical decision making narrative: Patient presents with a dog bite. The wound was irrigated and dressed. I would not close it as it was bite. She does not want her tetanus updated. I did correctional counselor/case manager her on this but she still does not want it. The patient was placed on Augmentin and was counseled on local wound care. She will be discharged home. Impression Dog bite right forearm Discharge Plan Triage Chief Complaint: Bite ED Provider: Jorge Stallworth Dx/Rx/DC Orders Instructions: ED Dog Bite Prescriptions: New amoxicillin-pot clavulanate [amoxicillin-pot clavulanate] 875 MG tablet 875 mg PO Q12H Qty: 14 RF: 0 No Action naproxen 500 MG tablet 500 mg PO BID PRN Qty: 20 RF: 0 ibuprofen 800 MG tablet 800 mg PO TID PRN PRN (Reason: Pain) Qty: 20 RF: 0 ondansetron 4 MG tablet 4 mg PO Q8H PRN PRN (Reason: Nausea) Qty: 10 RF: 0 Primary Care Provider: NOT,DEFINED Referrals: NOT,DEFINED [Primary Care Provider] -
[2020-12-29] MEDS: Amox/Clavulanate 875 MG Tablet PO (14:09)
[2020-12-29 14:10] VITALS: RESP 16; RESP 18
== END 2020-12-29 14:12 | disposition home or self-care (01) ==
LOC: ED 13:40
PROVIDERS: Emergency Provider Emergency Medicine
DX: S51.811A Laceration without foreign body of right forearm, initial encounter (principal); W54.0XXA Bitten by dog, initial encounter; Y92.89 Other specified places as the place of occurrence of the external cause; Y99.8 Other external cause status
CPT/HCPCS: 99282

== ENCOUNTER 2022-01-26 20:18 | Emergency (ER) | payer MEDICAID, SELFPAY ==
[2022-01-26 20:19] VITALS: BP 150/93; PULSE 133; RESP 24; TEMP 36.4; O2SAT 99; BMI 35.1
[2022-01-26] MEDS: Diphth,Pertuss(Acell),Tet Vac 0.5 ML Vial IM (20:36)
[2022-01-26] MEDS: Lidocaine 1% /Epi 1:100 (20ml) 20 ML Vial INFILT (20:39)
--- NOTE | 2022-01-26 20:53 | CM.ED ---
SW Note Referral Source: Case Find Referral Reason: No Primary Care Physician (PCP) SW reviewed chart and noted that patient has no PCP. SW provided patient with list of [facility] and [facility] Physician List for reference. SW also provided patient with handout ?Where to go When?. No other issues or concerns voiced at this time. SW remains available for any additional needs. Plan: Provided patient with PCP information Carole RUIZ
--- NOTE | 2022-01-26 21:01 | EDS_ITS ---
HPI History of Present Illness Chief Complaint: Laceration Narrative Narrative: She states she was using a knife inadvertently poked herself in the palm of the hand at the base of the third digit. There is a small puncture wound here. There is no active bleeding. Patient did not initially irrigate this but washed her hands with soap and water when she arrived. Last tetanus unknown. She request an update. No significant pain. No numbness or tingling. PFSH PFSH Medical History Anxiety Migraines Non-smoker Home Medications naproxen 500 mg tablet 500 mg PO BID PRN #20 tabs 09/17/18 [Rx Last Taken Unknown] ibuprofen 800 mg tablet 800 mg PO TID PRN PRN Pain #20 tabs 11/08/18 [Rx Last Taken Unknown] ondansetron 4 mg disintegrating tablet 4 mg PO Q8H PRN PRN Nausea #10 tabs 11/08/18 [Rx Last Taken Unknown] amoxicillin 875 mg-potassium clavulanate 125 mg tablet 875 mg PO Q12H #14 TABLETS 12/29/20 [Rx Last Taken Unknown] Allergy/AdvReac Type Severity Reaction Status Date / Time morphine AdvReac Itching Verified 01/26/22 20:21 Surgical History H/O umbilical hernia repair History of cholecystectomy Social History Smoking Status: Never smoker ROS ROS ED Constitutional Constitutional ED: Denies chills or fever(s) Eyes Eyes: Denies change in vision or diplopia ENT ENT ED: Denies rhinorrhea or sore throat Cardiovascular Cardiovascular: Denies chest pain or palpitations Respiratory/Chest Respiratory/Chest: Denies cough, dyspnea or dyspnea on exertion Gastrointestinal Gastrointestinal: Denies abdominal pain, constipation, diarrhea or melena Genitourinary Genitourinary ED: Denies dysuria or hematuria Musculoskeletal Musculoskeletal: Denies back pain, myalgias or neck pain Integumentary Reports other Details: Puncture wound right palm Neurologic Neurologic: Denies headache(s) Psychiatric Psychiatric: Denies anxiety or depression EXAM Physical Exam Const Vital Signs: 01/26/22 20:19 Temperature 97.6 F L Temperature Source Oral Pulse Rate 133 H Respiratory Rate 24 H Blood Pressure 150/93 H Blood Pressure Mean 112 Pulse Ox 99 Oxygen Delivery Method Room Air Positive well nourished General Appearance ED: NAD HEENT Reports moist mucous membranes Eyes PERRL and EOMs intact bilaterally Resp normal respiratory effort and clear to auscultation bilaterally Cardio regular rhythm Rate: tachycardic Extremity Extremity Narrative: Puncture wound to base of third digit on right hand. This is horizontal and about 1 cm. No bleeding. Wound margins well approximated. Right hand neurovascular intact to prescribe refill to all 5 fingers. Neuro oriented x3 and CN's II-XII intact bilaterally Skin Skin Narrative: As described above MDM MDM MDM Narrative Medical decision making narrative: Patient with 1 cm laceration to the right hand at the base of the third digit between the palm and the finger. No foreign body noted. Third digit neurovascular intact. No tendon exposure. No active bleeding. Wound was cleaned with chlorhexidine. There is an anesthetized with 2 cc of lidocaine with epinephrine. Good anesthesia achieved. Wound was explored and no foreign bodies. No tendon exposure. Wound is irrigated with approximately 100 cc of sterile saline. Wound was closed with 4-0 Ethilon sutures. Good approximation of the wound margins is achieved. Patient tolerated procedure well. Patient counseled on wound care and monitoring for signs of infection. Impression: 1. 1 cm hand laceration 2. Tetanus immunization Lab Data Attestation: I reviewed the patient's lab results. Procedures Lacerations right hand laceration: Length: 0.39 in Depth: Skin Shape: Linear Prep: Sterile Conditions and Chlorhexadine Laceration repair: Irrigated and Lidocaine with epi Irrigated (ml): 100 Number of Sutures/[place]: 2 Suture Information: Ethilon, Simple and 4-0 Discharge Plan Triage Chief Complaint: Laceration ED Provider: Emil Conley Dx/Rx/DC Orders Instructions: ED Laceration, Hand: All Closures Prescriptions: No Action naproxen 500 MG tablet 500 mg PO BID PRN Qty: 20 0RF ibuprofen 800 MG tablet 800 mg PO TID PRN PRN (Reason: Pain) Qty: 20 0RF ondansetron 4 MG tablet 4 mg PO Q8H PRN PRN (Reason: Nausea) Qty: 10 0RF amoxicillin-pot clavulanate [amoxicillin-pot clavulanate] 875 MG tablet 875 mg PO Q12H Qty: 14 0RF Primary Care Provider: Care Physician,No Primary Referrals: Care Physician,No Primary [Primary Care Provider] - Disposition Disposition: Home, Self Care
== END 2022-01-26 21:07 | disposition home or self-care (01) ==
PROVIDERS: Emergency Provider Student in an Organized Health Care Education/Training Program; Visit Provider Student in an Organized Health Care Education/Training Program
DX: S61.419A Laceration without foreign body of unspecified hand, initial encounter (principal); Z23 Encounter for immunization; W26.0XXA Contact with knife, initial encounter
CPT/HCPCS: 12001; 90715; 99283

== ENCOUNTER 2022-12-01 18:38 | Emergency (ER) | payer MEDICAID, SELFPAY ==
[2022-12-01 18:39] VITALS: BP 145/94; PULSE 98; RESP 18; TEMP 35.9; O2SAT 100; BMI 35.2
--- NOTE | 2022-12-01 18:58 | US_ITS ---
INDICATION: On and off leg pain and swelling EXAMINATION: US Venous Duplex LE Bilat Complete BILATERAL TECHNIQUE: Jackson scale, pulse wave, and color flow Doppler imaging was performed of the lower extremity venous system. The bilateral greater saphenous, common femoral, femoral, popliteal, posterior tibial and peroneal veins were interrogated. COMPARISON: None. FINDINGS: There is normal compression, augmentation, and signal throughout the visualized deep lower extremity veins. No mass or fluid collection demonstrated. US/Venous Duplex Imag/Memo Extrem IMPRESSION: No sonographic evidence of right or left lower extremity deep venous thrombosis. Electronically Signed: Chung Modi MD at 19:48 EDT ,
--- NOTE | 2022-12-01 18:59 | EX.ED.DYSGE1 ---
HPI History of Present Illness Chief Complaint: Lower Extremity Injury Narrative Narrative: Patient presents with bilateral lower extremity pain. She is worried about a DVT. She has intermittent pain from her varicosities, she thinks this could be somewhat different. Currently she does not have any pain. She has no fever or chills no redness no swelling. No prior travel history. PFSH PFSH Medical History Anxiety Migraines Non-smoker Home Medications naproxen 500 mg tablet 500 mg PO BID PRN #20 tabs 09/17/18 [Rx Last Taken Unknown] ibuprofen 800 mg tablet 800 mg PO TID PRN PRN Pain #20 tabs 11/08/18 [Rx Last Taken Unknown] ondansetron 4 mg disintegrating tablet 4 mg PO Q8H PRN PRN Nausea #10 tabs 11/08/18 [Rx Last Taken Unknown] amoxicillin 875 mg-potassium clavulanate 125 mg tablet 875 mg PO Q12H #14 TABLETS 12/29/20 [Rx Last Taken Unknown] Allergy/AdvReac Type Severity Reaction Status Date / Time morphine AdvReac Itching Verified 12/01/22 18:39 Surgical History H/O umbilical hernia repair History of cholecystectomy Social History Smoking Status: Never smoker ROS ROS ED ROS Narrative Past medical history: Reviewed Medications: Reviewed Social history: Noncontributory Review of systems: All systems negative except as indicated General: No fever Cardiovascular: No chest pain Respiratory: No shortness of breath or cough Musculoskeletal: As in HPI Skin: No rash Neurological: No memory loss, confusion or any focal weakness EXAM Physical Exam Narrative Exam Narrative: Physical exam General: Patient is comfortable in the bed Head: Normocephalic, Atraumatic Cardiovascular: Regular rate, Regular rhythm Respiratory: No distress, CTA bilaterally Abdomen: Soft, Nontender, Nondistended Back: Nontender, Normal Inspection. Negative for: CVA tenderness Extremities: Posterior varicosities, no edema, no calf pain. Skin: Normal color, No rash Neurological: Alert, Normal Strength, Normal Sensation Const Vital Signs: 12/01/22 18:39 Temperature 96.7 F L Temperature Source Temporal Pulse Rate 98 Respiratory Rate 18 Blood Pressure 145/94 H Blood Pressure Mean 111 Pulse Ox 100 Oxygen Delivery Method Room Air MDM MDM MDM Narrative Medical decision making narrative: Patient has an unremarkable work-up, no evidence of DVT on ultrasound. There is no evidence of cellulitis., There is no evidence based on exam of arterial occlusion. She was reassured I will discharge her in stable condition. Radiography Diagnostic Testing: Clinical Impression(s) from Imaging Studies Venous Duplex 12/01/22 18:58 IMPRESSION: No sonographic evidence of right or left lower extremity deep venous thrombosis. Electronically Signed: Chung Modi MD at 19:48 EDT , Discharge Plan Triage Chief Complaint: Lower Extremity Injury ED Provider: Esa Bear Dx/Rx/DC Orders Clinical Impression: Lower extremity pain, Varicosities of leg Instructions: Spider and Varicose Veins Prescriptions: No Action naproxen 500 MG tablet 500 mg PO BID PRN Qty: 20 0RF ibuprofen 800 MG tablet 800 mg PO TID PRN PRN (Reason: Pain) Qty: 20 0RF ondansetron 4 MG tablet 4 mg PO Q8H PRN PRN (Reason: Nausea) Qty: 10 0RF amoxicillin-pot clavulanate [amoxicillin-pot clavulanate] 875 MG tablet 875 mg PO Q12H Qty: 14 0RF Primary Care Provider: Care Physician,No Primary Referrals: Care Physician,No Primary [Primary Care Provider] - 3-5 Days Disposition Disposition: Home, Self Care
== END 2022-12-01 20:13 | disposition home or self-care (01) ==
PROVIDERS: Emergency Provider Emergency Medicine; Visit Provider Emergency Medicine
DX: I83.90 Asymptomatic varicose veins of unspecified lower extremity (principal); M79.661 Pain in right lower leg; M79.662 Pain in left lower leg
CPT/HCPCS: 93970; 99282

== ENCOUNTER 2023-05-13 16:41 | Emergency (ER) | payer MEDICAID, SELFPAY ==
[2023-05-13 16:42] VITALS: BP 137/83; PULSE 121; RESP 20; TEMP 36.6; O2SAT 98; BMI 34.6
--- NOTE | 2023-05-13 16:54 | EX.ED.DYSGE1 ---
HPI History of Present Illness Chief Complaint: Sore Throat PFSH PFSH Medical History Anxiety Migraines Non-smoker Home Medications naproxen 500 mg tablet 500 mg PO BID PRN #20 tabs 09/17/18 [Rx Last Taken Unknown] ibuprofen 800 mg tablet 800 mg PO TID PRN PRN Pain #20 tabs 11/08/18 [Rx Last Taken Unknown] ondansetron 4 mg disintegrating tablet 4 mg PO Q8H PRN PRN Nausea #10 tabs 11/08/18 [Rx Last Taken Unknown] amoxicillin 875 mg-potassium clavulanate 125 mg tablet 875 mg (0.875 x 875-125 mg) PO Q12H #14 TABLETS 12/29/20 [Rx Last Taken Unknown] Allergy/AdvReac Type Severity Reaction Status Date / Time morphine AdvReac Itching Verified 05/13/23 16:42 Surgical History H/O umbilical hernia repair History of cholecystectomy Social History Smoking Status: Never smoker EXAM Physical Exam Const Vital Signs: 05/13/23 16:42 Temperature 97.8 F Temperature Source Temporal Pulse Rate 121 H Respiratory Rate 20 H Blood Pressure 137/83 H Blood Pressure Mean 101 Pulse Ox 98 Oxygen Delivery Method Room Air Discharge Plan Triage Chief Complaint: Sore Throat ED Midlevel Provider: Esa Cosme ED Provider: Keysha Loco Dx/Rx/DC Orders Prescriptions: No Action naproxen 500 MG tablet 500 mg PO BID PRN Qty: 20 0RF ibuprofen 800 MG tablet 800 mg PO TID PRN PRN (Reason: Pain) Qty: 20 0RF ondansetron 4 MG tablet 4 mg PO Q8H PRN PRN (Reason: Nausea) Qty: 10 0RF amoxicillin-pot clavulanate [amoxicillin-pot clavulanate] 875 MG tablet 875 mg PO Q12H Qty: 14 0RF Primary Care Provider: Care Physician,No Primary Referrals: Care Physician,No Primary [Primary Care Provider] -
--- NOTE | 2023-05-13 16:58 | EX.ED.DYSGE1 ---
HPI <KOJO Spears - Last Filed: 05/13/23 17:03> History of Present Illness Chief Complaint: Sore Throat Narrative Narrative: Patient is a 33-year-old female with no significant medical history who presents to the emergency department with complaints of sore throat. Patient states she does have history of strep throat, last time was a couple years ago. She denies any nausea vomiting, [place] any cough. Patient states he had low-grade fever and chills. Denies any difficulty breathing PFSH <KOJO Spears - Last Filed: 05/13/23 17:03> PFSH Medical History Anxiety Migraines Non-smoker Home Medications naproxen 500 mg tablet 500 mg PO BID PRN #20 tabs 09/17/18 [Rx Last Taken Unknown] ibuprofen 800 mg tablet 800 mg PO TID PRN PRN Pain #20 tabs 11/08/18 [Rx Last Taken Unknown] ondansetron 4 mg disintegrating tablet 4 mg PO Q8H PRN PRN Nausea #10 tabs 11/08/18 [Rx Last Taken Unknown] amoxicillin 875 mg-potassium clavulanate 125 mg tablet 875 mg (0.875 x 875-125 mg) PO Q12H #14 TABLETS 12/29/20 [Rx Last Taken Unknown] amoxicillin 500 mg capsule 500 mg PO Q12H #20 caps 05/13/23 [Rx Last Taken Unknown] Allergy/AdvReac Type Severity Reaction Status Date / Time morphine AdvReac Itching Verified 05/13/23 16:42 Surgical History H/O umbilical hernia repair History of cholecystectomy Social History Smoking Status: Never smoker ROS <KOJO Spears - Last Filed: 05/13/23 17:03> ROS ED ROS Narrative Constitutional: Negative for weight loss, weakness. Positive for fever and chills Eyes: Negative for vision loss, vision change, double vision ENT: Negative for any ear pain, congestion. Positive for sore throat Cardiovascular: Negative for any chest pain, tightness, palpitations Respiratory: Negative for any cough, sputum production, hemoptysis, dyspnea, dyspnea on exertion, orthopnea Gastrointestinal: Negative for any abdominal pain, nausea, vomiting, diarrhea, constipation, blood in stool, blood in vomit : Negative for any urinary frequency, dysuria, retention, blood in urine Muscle skeletal: Negative for any muscle joint pain, stiffness, myalgias, arthralgias, neck pain, back pain Neurological: Negative for any headache, syncope, numbness or tingling, dizziness Skin: Negative for any rashes, lumps, itching, abrasions, lacerations Psychiatric: Negative for any depression, anxiety, stress, suicidal ideation, homicidal ideation Hematologic: Negative for any easy bruising, excessive bruising, easy bleeding Allergies: Negative for any eczema, hives, rash EXAM <KOJO Spears - Last Filed: 05/13/23 17:03> Physical Exam Narrative Exam Narrative: Vital signs reviewed. HEET: Head normocephalic atraumatic, TMs clear bilaterally. Posterior pharynx is clear, moist mucous membranes. Nares clear bilaterally. Patient has +2 tonsils, erythema, edema, bilateral exudate. No unilateral swelling, no uvula deviation Neck: Supple with no lymphadenopathy or tenderness. No signs of meningismus, negative jolt sign. Cardiac: Regular rate and rhythm no murmurs gallops or rubs, equal peripheral pulses bilaterally. Respiratory: Lungs clear to auscultation bilaterally. No chest tenderness. Abdomen: Soft, nontender, nondistended. No abdominal bruit or pulsatile masses. No hepatosplenomegaly Extremities: No peripheral edema, no signs of gross trauma or deformity. Active full range of motion of all extremities. Neuro: Cranial nerves II through XII intact, no focal neurological deficits. Skin: Clean dry and intact with no rash, purpura, petechiae, vesicles or pustules. Backs/flank: No CVA tenderness, no midline spinal tenderness, no deformity. Psych: Normal mood and affect. No SI, HI or acute psychosis. Const Vital Signs: 05/13/23 16:42 Temperature 97.8 F Temperature Source Temporal Pulse Rate 121 H Respiratory Rate 20 H Blood Pressure 137/83 H Blood Pressure Mean 101 Pulse Ox 98 Oxygen Delivery Method Room Air <Dr. Keysha Loco DO - Last Filed: 05/13/23 17:05> Physical Exam Const Vital Signs: 05/13/23 16:42 Temperature 97.8 F Temperature Source Temporal Pulse Rate 121 H Respiratory Rate 20 H Blood Pressure 137/83 H Blood Pressure Mean 101 Pulse Ox 98 Oxygen Delivery Method Room Air [facility] <KOJO Spears - Last Filed: 05/13/23 17:03> [facility] Treatment and Re-Evaluation :: Patient appears generally well, patient appears nontoxic, vital signs are stable. Patient presents to the emergency department for sore throat, exudate for the last 3 to 4 days. Differential diagnosis includes viral pharyngitis, strep pharyngitis, peritonsillar abscess. Patient shows no red flag signs, no evidence of peritonsillar abscess, no evidence of any deep tissue infection. Patient has a Centor score of 4, patient with you with antibiotics. Instructed return for any worsening symptoms. Patient was diagnosed with strep pharyngitis <Dr. Keysha Loco DO - Last Filed: 05/13/23 17:05> [facility] Narrative Medical decision making narrative: I have personally performed a face to face assessment of the patient and have reviewed the SALO Note. I performed a substantive portion of the visit including all aspects of the following. My duke findings include: History is [patient presents to the emergency department with complaint of a sore throat for several days. She complains of exudates on her tonsils. Patient's significant other had strep and was treated with antibiotics about 4 weeks ago. Patient denies any cough. She has had fever up to 99 at home. She denies any chills or sweats. Patient states that she frequently gets tonsillitis.] Exam is [HEENT-PERRLA, EOMI. Cranial nerves II through XII grossly intact. TMs clear. Mucous membranes moist. Pharynx-diffuse erythema with enlarged tonsils at +3. Patient has bilateral tonsillar exudates. No evidence of peritonsillar abscess. Uvula midline without trismus. Patient has anterior cervical lymphadenopathy bilaterally. No posterior adenopathy. Cardiovascular-regular rate and rhythm without murmur or ectopy Lungs-clear to auscultation, chest wall stable without crepitus or subcu emphysema Abdomen-normoactive bowel sounds, soft, nontender, no rebound or rigidity, no peritoneal signs. Extremities-intact ?4, normal range of motion, normal pulses, atraumatic] Medical Decison Making [patient presents with sore throat x2 days. She has a Centor score of 4 out of 4. We will treat with amoxicillin. Advised on salt water gargles. Advised to follow-up with primary care physician on-call for no doc within next 3 to 5 days. She is advised to return if worsening pain, difficulty swallowing, or condition should worsen anyway.] Other additions or changes: [None] Discharge Plan Triage Chief Complaint: Sore Throat ED Midlevel Provider: Esa Cosme ED Provider: Keysha Loco Dx/Rx/DC Orders Clinical Impression: Strep pharyngitis Instructions: ED Pharyngitis, Strep (Confirmed) Prescriptions: New amoxicillin 500 mg capsule 500 mg PO Q12H Qty: 20 0RF No Action naproxen 500 MG tablet 500 mg PO BID PRN Qty: 20 0RF ibuprofen 800 MG tablet 800 mg PO TID PRN PRN (Reason: Pain) Qty: 20 0RF ondansetron 4 MG tablet 4 mg PO Q8H PRN PRN (Reason: Nausea) Qty: 10 0RF amoxicillin-pot clavulanate [amoxicillin-pot clavulanate] 875 MG tablet 875 mg PO Q12H Qty: 14 0RF Primary Care Provider: Care Physician,No Primary Referrals: Care Physician,No Primary [Primary Care Provider] -
[2023-05-13] MEDS: AMOXICILLIN 500 MG CAPSULE PO (17:14)
== END 2023-05-13 17:16 | disposition home or self-care (01) ==
PROVIDERS: Emergency Provider Emergency Medicine; Visit Provider Emergency Medicine
DX: J02.0 Streptococcal pharyngitis (principal); Z90.49 Acquired absence of other specified parts of digestive tract
CPT/HCPCS: 99282

== ENCOUNTER 2023-09-21 14:37 | Emergency (ER) | payer MEDICAID, SELFPAY ==
[2023-09-21 14:39] VITALS: BP 144/96; PULSE 146; RESP 16; TEMP 36.6; O2SAT 99
[2023-09-21 15:11] LABS: Bedside Glucose 357 mg/dL (74-106)
--- NOTE | 2023-09-21 15:46 | EDS_ITS ---
HPI History of Present Illness Chief Complaint: Hyperglycemia PFSH PFSH Medical History Anxiety Migraines Non-smoker Home Medications naproxen 500 mg tablet 500 mg PO BID PRN #20 tabs 09/17/18 [Rx Last Taken Unknown] ibuprofen 800 mg tablet 800 mg PO TID PRN PRN Pain #20 tabs 11/08/18 [Rx Last Taken Unknown] ondansetron 4 mg disintegrating tablet 4 mg PO Q8H PRN PRN Nausea #10 tabs 11/08/18 [Rx Last Taken Unknown] amoxicillin 875 mg-potassium clavulanate 125 mg tablet 875 mg (0.875 x 875-125 mg) PO Q12H #14 TABLETS 12/29/20 [Rx Last Taken Unknown] amoxicillin 500 mg capsule 500 mg PO Q12H #20 caps 05/13/23 [Rx Last Taken Unknown] Allergy/AdvReac Type Severity Reaction Status Date / Time morphine AdvReac Itching Verified 09/21/23 14:39 Surgical History H/O umbilical hernia repair History of cholecystectomy Social History Smoking Status: Never smoker EXAM Physical Exam Const Vital Signs: 09/21/23 14:39 09/21/23 17:00 09/21/23 18:15 Temperature 98 F 97.6 F L Temperature Source Temporal Pulse Rate 146 H 101 H 99 Respiratory Rate 16 14 24 H Blood Pressure 144/96 H 112/84 H 124/79 H Blood Pressure Mean 112 93 94 Pulse Ox 99 97 99 Oxygen Delivery Method Room Air Room Air [facility] MDM Narrative Medical decision making narrative: HISTORY OF PRESENT ILLNESS: 33-year-old female presents with concern for new onset diabetes. States she was seen by her eye doctor was concerned that she may have some diabetic changes. She took a few members [id number] glucose testing her glucose of greater than 400. REVIEW OF SYSTEMS: Pertinent positives: Hyperglycemia Pertinent negatives: Recent illness, fever, chest pain, shortness of breath, leg swelling, rash, increased thirst, increased urination PHYSICAL EXAM: Nursing triage notes reviewed, Vital signs reviewed Constitutional: please see mdm HENT: MMM Eyes: Pupils equal round and reactive to light, Extraocular muscles intact Neck: No stridor, no JVD, full neck ROM Lungs: Clear to auscultation, No wheezing or rales. No increased work of breathing, no conversational dyspnea, no accessory muscle use, no nasal flaring. No respiratory distress noted Heart: Regular rate and rhythm, No murmurs, No rubs and No gallops, 2+ distal pulses (radial, femoral, posterior tibial) in all extremities Abdomen: Soft, there is no tenderness, rigidity, rebound or guarding, no obvious peritoneal signs, no palpable pulsatile abdominal masses, no auscultated abdominal bruit : No CVAT Extremities: No edema Neuro: No focal neurological deficits, cranial nerves II through XII intact, 5/5 strength in all extremities. Intact sensation to light touch in all extremities, 2+ reflexes bilateral patella tendons. Normal gait. No ataxia. Skin: No rash or lesions noted MEDICAL DECISION MAKING: Chief Complaint: Hyperglycemia External records reviewed: No recent visits for similar symptoms Factors affecting care: None Social determinants of health: History of anxiety History obtained from others: The patient's Consults: none [facility] Narrative: Patient was initially tachycardic otherwise afebrile. Exam without obvious signs of infection. I considered the following differential diagnosis: DKA, HHS, hyperglycemia, new onset diabetes I obtained a broad lab workup to further elucidate the etiology patient complaint specifically rule out DKA ALL IMAGES (IF OBTAINED) HAVE BEEN PERSONALLY REVIEWED AND INTERPRETED BY MYSELF. Given the patient initial tachycardia did obtain EKG. EKG shows sinus tachycardia rate 113 bpm, normal axis, no intervals, no STEMI VBG without evidence of acidosis, there is signs of metabolic acidosis however this is not consistent with DKA CBC without leukocytosis, severe anemia, no thrombocytopenia. BMP without significant Amanda abnormalities, there is no anion gap to suggest DKA, there is no acute kidney injury noted hyperglycemia A1c consistent with severe diabetes LFTs with mild elevations in liver enzymes Lipase is wnl indicating no pancreatic inflammation. Urine test negative Urinalysis consistent with glucosuria The synthesis of the patient's history, physical exam, labs images suggest new onset diabetes. No evidence of DKA. Patient given 2 L of fluid. He is appropriate for discharge home with a low-carb diet and close PCP follow-up. The patient and/or family, caregivers express understanding. The patient and/or family, caregivers agrees with the plan. Shared decision making: I will have a discussion with the patient and or visitors regarding risk/b enefits of further testing or admission. They will be made aware of of the risk/benefits inherent in this decision they will be given the opportunity to voice understanding. Total critical care time today provided was at least 0 minutes. This excludes separately billable procedures. Critical care time (if documented) is secondary to the patient having high probability of clinically significant/life threatening deterioration in the patient's condition which required my urgent intervention. Impression: 1. Hyperglycemia 2. New onset diabetes Dispo: Discharge home This note was generated with [email or web address] dictation software. It may contain incorrect words, spelling, and punctuation that were not noted in review of the chart prior to signing. Lab Data Labs: Laboratory Results - last 24 hr 09/21/23 09/21/23 09/21/23 14:53 16:48 16:50 WBC 9.6 RBC 5.01 Hgb 13.1 Hct 39.1 MCV 78.0 L MCH 26.1 L MCHC 33.5 RDW Std Deviation 38.5 RDW Coeff of Portia 14.1 Plt Count 354 MPV 10.5 Immature Gran % (Auto) 0.500 Neut % (Auto) 72.2 H Lymph % (Auto) 21.2 [place] % (Auto) 5.2 Eos % (Auto) 0.4 Baso % (Auto) 0.5 Absolute Neuts (auto) 6.9 Absolute Lymphs (auto) 2.02 Nucleated RBC % 0 Sodium 135 L Potassium 3.9 Chloride 103 Carbon Dioxide 24.0 Anion Gap 8 BUN 11 Creatinine 0.73 Est GFR (MDRD) Af Amer 117 Est GFR (MDRD) Non-Af 97 BUN/Creatinine Ratio 15.2 Glucose 333 H Hemoglobin A1c 11.2 H Calcium 9.4 Total Bilirubin 0.50 AST 50 H ALT 67 H Alkaline Phosphatase 87 Total Protein 8.6 H Albumin 4.0 Globulin 4.6 H Albumin/Globulin Ratio 0.9 Lipase 72 Urine Color Yellow Urine Clarity Sl. Cloudy Urine pH 5.0 Ur Specific [place] 1.025 Urine Protein 500 H Urine Glucose (UA) 1000 H Urine Ketones 150 A* Urine Occult Blood 50 H Urine Nitrite Negative Urine Bilirubin Negative Urine Urobilinogen Normal Ur Leukocyte Esterase 100 H Urine RBC 0-5 SEEN Urine WBC 10-25 SEEN Ur Squamous Epith Cells 5-10 SEEN Urine Bacteria 1+ Urine Mucus 0 SEEN Urine Test Negative [place]et[place] Level NEGATIVE POC Glucose 357 H ABG Data ABG results: ABG 09/21/23 16:58 Specimen Type LETI Sample Site Not entered VBG pH 7.41 VBG pO2 43 H VBG HCO3 22 VBG Total CO2 23 VBG O2 Sat (Calc) 79 H VBG Base Excess -2 L POC Mix VBG pCO2 Pt Tmp 35.5 L O2 Delivery Device Room Air Discharge Plan Triage Chief Complaint: Hyperglycemia ED Provider: Anmol Parkinson Dx/Rx/DC Orders Instructions: Diabetes Carbs Fats Protein, ED Diabetic Hyperglycemia Prescriptions: No Action naproxen 500 MG tablet 500 mg PO BID PRN Qty: 20 0RF ibuprofen 800 MG tablet 800 mg PO TID PRN PRN (Reason: Pain) Qty: 20 0RF ondansetron 4 MG tablet 4 mg PO Q8H PRN PRN (Reason: Nausea) Qty: 10 0RF amoxicillin-pot clavulanate [amoxicillin-pot clavulanate] 875 MG tablet 875 mg PO Q12H Qty: 14 0RF amoxicillin 500 mg capsule 500 mg PO Q12H Qty: 20 0RF Primary Care Provider: Care Physician,No Primary Referrals: Nova Ray MD [Med Staff - [facility]] - Care Physician,No Primary [Primary Care Provider] - Activity Restrictions/Additional Instructions: Thank you for trusting us with your care today! Please drink plenty of fluids. Please do not consume any carbohydrates as this will exacerbate your underlying diabetes. Please undertake regular exercise. Please take Tylenol (2 pills, 650 mg), ibuprofen (2 pills, 400 mg) every 6 hours as needed for pain and fever control. Please return to the emergency department if your symptoms change or worsen. Specifically develop shortness of breath, vomiting, excessive thirst or excessive urination. Please follow with your primary care physician for further outpatient evaluation and management. Disposition Disposition: Home, Self Care Discharge Date/Time: 09/21/23 18:30
[2023-09-21] MEDS: hydrOXYzine 10 MG Tablet PO (16:36)
--- NOTE | 2023-09-21 16:39 | ED.RN ---
Pt initially refusing IV until she has spoken with MD. Pt now in agreement with IV, but wanted anxiety meds first.
[2023-09-21] MEDS: 0.9% Normal Saline (1000mL) 1,000 ML 1000 ML IV ×2 (16:51→17:42)
[2023-09-21 16:58] LABS: Mucous, Urine 0 SEEN /hpf (<or=2+)
[2023-09-21 16:59] LABS: Absolute Lymphocyte Count 2.02 X10^3/uL (0.83-4.51); Absolute Neutrophil Count 6.9 X10^3/uL (2.0-7.7); Basophil# 0.05 X10^3/uL; Basophil% 0.5 % (0-1); Eosinophil# 0.04 X10^3/uL; Eosinophils% 0.4 % (0-5); Hematocrit 39.1 % (37-47); Hemoglobin 13.1 g/dL (12.0-15.0); Lymphocyte # 2.02 X10^3/ul (0.83-4.51); Lymphocyte % 21.2 % (19-41); Mean Corp Hgb Conc 33.5 g/dL (32-36); Mean Corpuscular Hgb 26.1 pg (27.0-32.0); Mean Platelet Vol. 10.5 fl (6.2-12.0); Monocyte% 5.2 % (0-10); NRBC Flagged by Analyzer 0 % (0-5); Neutrophil # 6.89 X10^3/uL (2.7-7.7); Neutrophil % 72.2 % (47-70); Platelet Count 354 K/mm3 (150-450); RBC Distribution Width CV 14.1 % (11.6-14.6); RBC Distribution Width SD 38.5 fl (35.1-43.9); Red Blood Count 5.01 M/mm3 (4.2-5.4); White Blood Count 9.6 K/mm3 (4.4-11.0)
[2023-09-21 17:00] VITALS: BP 112/84; PULSE 101; RESP 14; O2SAT 97
[2023-09-21 17:01] LABS: Color, Urine Yellow (Yellow); Glucose, Dipstick 1000 mg/dl (Normal); Leukocyte Esterase-Dipstick 100 /ul (Negative); Nitrite-Dipstick Negative (Negative); Occult Blood-Urine 50 /ul (Negative); Protein-Dipstick 500 mg/dl (Negative); Specific Gravity, Urine 1.025 (1.002-1.030); Urine Bilirubin Dipstick Negative (Negative); Urine Clarity Sl. Cloudy (Clear); Urine Urobilinogen Normal (Normal)
[2023-09-21 17:02] LABS: Blood Gas Specimen Type VEN; O2 Delivery Device Room Air; SITE Not entered; VBG BASE EXCESS -2 mmol/L (-1.0-3.5); VBG Bicarbonate 22 mmol/L (22-26); VBG PO2 43 mmHg (25-40); VBG SO2 79 % (50-70); VBG TCO2 23 mmol/L (23-33); VBG pCO2 35.5 mmHg (41-51); VBG pH 7.41 (7.32-7.42)
[2023-09-21 17:15] LABS: Ketone-Dipstick 150 mg/dl (Negative)
[2023-09-21 17:18] LABS: ALB/GLOB Ratio 0.9 RATIO (0.9-2.4); AST(SGOT) 50 U/L (15-37); Alanine Aminotransfer ALT/SGPT 67 U/L (13-56); Alkaline Phosphatase 87 U/L (45-117); Anion Gap 8 (5-15); BUN 11 mg/dL (7-18); BUN/Creat Ratio 15.2 RATIO (10-20); Calcium,Total 9.4 mg/dL (8.5-10.1); Chloride 103 mmol/L (98-107); Creatinine, Serum 0.73 mg/dL (0.55-1.02); EST Glomerular Filtration Rate 97 mL/min (>60); Est Glom Filt Rate - Afr Amer 117 mL/min (>60); Globulin 4.6 g/dL (2.2-4.2); Glucose 333 mg/dL (74-106); Lipase 72 U/L (13-75); Potassium 3.9 mmol/L (3.5-5.1); Protein, Total 8.6 g/dL (6.4-8.2); Sodium Level 135 mmol/L (136-145)
[2023-09-21 17:25] LABS: Bacteria 1+ /hpf (None Seen); Red Blood Cells-Urine 0-5 SEEN /hpf (0-5); Squamous Epithelial Cells - UA 5-10 SEEN /hpf (5-10); White Blood Cells 10-25 SEEN /hpf (0-5)
[2023-09-21 17:26] LABS: Internal QC Validated? YES +Cl - CLEAR BKGD
[2023-09-21 17:27] LABS: Pregnancy, Urine Negative Negative
[2023-09-21 17:37] LABS: Hemoglobin A1c 11.2 % (3.8-5.6)
[2023-09-21 18:15] VITALS: BP 124/79; PULSE 99; RESP 24; TEMP 36.4; O2SAT 99
--- OUTSIDE RECORDS SUMMARY | 2023-09-21 21:52 | XMS RPT_ITS | CCD ---
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 above - UA - large blood Avoid bladder irritants - spicy, citrus, tomatoes, smoking, coffee, tea, pop, carbonation, artificial sweeteners - CONSULT TO UROLOGY 3. Urinary frequency - ICD9: 788.41, ICD10: R35.0 - See above - UA DIP, URINE (POC) - CONSULT TO UROLOGY Will notify of results. Follow- up as needed. Sherry Maxwell APRN.CNP I spent a total of 25 minutes on the date of the service which included preparing to see the patient, [id number] patient care, completing clinical documentation, obtaining and/or reviewing separately obtained history, performing a medically appropriate examination, counseling and educating the patient/family/caregiver, and ordering medications, tests, or procedures. documented in this encounter [facility] 01-28-2022 Miscellaneous Notes Pt called per myself. Advised to take placebo pill for the next 5 days then start next pack. Will notify office if daily bleeding continues after menses. Sherry Maxwell APRN.CNP Patient had a mirena IUD removed on 01/04/2022 and started taking Apri the same day of removal. Patient states that she started having vaginal bleeding the day after IUD was removed and her bleeding have been like a normal menses most days with a few days of spotting. Patient is changing her pad 3 to 4 times a day and had clotting yesterday. Is c/o mild intermittent cramping. Patient stated that she stopped taking Apri 2 days ago d/t the bleeding. Please advise documented in this encounter [facility] 01-05-2022 Miscellaneous Notes Patient notified and voiced understanding. Molly Katz RN Left message for patient to call office. Krystle Raza RN ----- Message from Alea Parikh APRN.CNP sent at 01/05/2022 8:29 AM EDT ----- Please let patient know that her BV/yeast test was negative. Alea Parikh APRN.CNP documented in this encounter [facility] 01-04-2022 History of Presen t illness Narrative Jovita presents for removal of IUD due to pain and irregular bleeding UNIVERSAL PROTOCOL / SAFETY CHECKLIST Procedure to be Performed: IUD removal Sign In: A Moment of CARE was completed. Personnel directly involved with the procedure wore the appropriate PPE (Personal Protective Equipment). Patient/Surrogate Stated/Verified: PATIENT VERIFIED(optional for EMERGENT procedures): Patient name, Date of , Relevant allergies and The intended procedure Time Out Communication: Intended patient and procedure match the source documents. Consent documented and matches the intended procedure. Sign Out: SIGN OUT (optional for EMERGENT procedures): All instruments, equipment, possible retained foreign bodies accounted for. Post-procedure follow-up management communicated and Plan of Care Visit completed when applicable. Sherry Maxwell APRN.CNP PROCEDURE: Speculum placed in vagina, IUD string visualized and grasped with ring forceps. Yellow tinged thick vaginal discharge. ASSESSMENT/PLAN: IUD removed without difficulty, intact, and patient tolerated procedure well. Contraception plans: oral contraceptives - already has prescription Vaginal discharge - BVC Will notify of results. Follow- up as needed. Sherry Maxwell APRN.CNP documented in this encounter [facility] 12-28-2021 Miscellaneous Notes Order linked. Krystin Badillo LPN Order filed. Alea Parikh APRN.CNP Please sign order for IUD removal in AG absence so that this can be linked to appt to start referral. Krystin Badillo LPN documented in this encounter [facility] 12-27-2021 Instructions Sherry Maxwell APRN.MAN - 12/27/2021 4:02 PM EDT Oral Contraceptives: The Pill Beginning the Pill Pills come in either a 21 day pack or a 28 day pack. With the 21 day pack you will take one pill for 21 days then no pill for 7 days, during which time you will have what is known as withdrawal bleeding. The 28 day pack allows you to take a pill every day of the cycle with no interruptions. The first 21 pills are the pills with the active ingredients and the last 7 are the nonmedical pills (placebo) or they may contain iron. There will be bleeding during the week you are taking the nonmedical pills. The advantage to the 28 day pack is that you don t have to keep track of when you stopped the pill. There are a group of 28 day pills that contain 24 active pills and only 4 placebo pills. These are formulated to give you a deputy felony clerk period. Unless otherwise instructed, you should start your pills the Monday following your first day of bleeding with your next period (if your period starts on a Monday, you should start pills the same day) Read your information packet that comes with the pills. Pill Benefits The pill is the most popular method of reversible control being used today. Millions of women rely on oral contraceptives as their control method. It is important to have an examination by your physician to determine if the pill is safe for you. There are several advantages associated with the pill: it is 97-98% effective when used correctly; may improve acne; periods are more regular and less painful; there is less iron deficiency anemia in pill users. snf use is associated with a decreased incidence of ovarian and uterine cancer. There is also no evidence that the pill increases the incidence of any cancer. How Oral Contraceptives Work Oral contraceptives come in two varieties. One is the combination pill which contains both estrogen and progesterone. Combination pills are considered 98-99% effective in preventing . This pill comes in either monophasic, which delivers the same amount of estrogen and progesterone throughout the cycle; and triphasic, which try tries to mimic the normal hormone cycle by changing the levels of the hormones in the pills during the month. There is no real advantage to taking the one over the other. The other type of pill only contains progesterone. It is best used for women who can t take estrogen. This type of pill is slightly less effective than the combination pill in preventing . It is VERY important to take the progesterone only pill at the same time every day. Oral contraceptives prevent ovulation (release of an egg from the ovary) by suppressing the pituitary gland s action. The pill does NOT prevent sexually transmitted disease. Obtaining a Prescription It is important to see your doctor before starting oral contraceptives so that you can have a full medical history taken and a physical examination given. Certain medical conditions may make the pill inappropriate for you, therefore it is very important to be honest and as complete as possible with the information you share with your doctor. The types of predisposing factors which would make the pill a poor choice of control would include: History of blood clots Stroke Serious liver disease or impaired liver function Unexplained vaginal bleeding or Cancer of the reproductive system Active gall bladder disease Hypertension Possible Side Effects It can take up to three months for your body to become adjusted to the pill. The more common side effects experienced at this time are: breakthrough spotting or bleeding, which is bleeding at any other time other than when you should be having a period; nausea or vomiting; breast tenderness; and mild fluid retention. There is no refuse collector weight gain with the use of the pill. Breakthrough bleeding is the most common complaint of new pill users. There is no way to predict who will have it and there is no way of preventing it. Breakthrough bleeding usually subsides on its own with no further treatment after the first three months of taking the pill. If these symptoms continue to occur after the first three months you should check with your physician to see if there is any physical cause and possibly change to another control pill. Problems: 1. Missed 1 pill: Take 2 pills the next day. 2. Missed 2 pills: Take 2 pills the next day and 2 pills the following day. Also use another form of control (condoms) along with the pill for the rest of the month. 3. Missed 3 or more pills: You have two choices. You can take two pills each day until you are on schedule, plus use an additional form of control along with the pill for the rest of the month. Or you can stop the pill and start a completely new pack of pills the next Monday. You must use another form of control with the pill for at least the first two weeks of the new pack. 4. You re ill and you have been vomiting or have diarrhea: You must use another form of control with the pill since the pill may not be fully absorbed during your illness. Continue to use the added control until the end of the cycle. 5. Desire to become : Stop using the pill for one month before trying to become . 6. Taking other medications: The control pill is less effective when you take the antibiotic Rifampin, epilepsy (seizure) drugs such as phenytoin, carbamazepine, phenobarbital, topiramate and some medications for HIV. Let your doctor know if you start taking any of these medications while on the pill. Symptoms to Notify Your Doctor with Immediately: 1. Pain in your chest or legs 2. Continuous blurred vision 3. Severe headaches 4. Slurred speech 5. Tingling or weakness on one side of your body 6. Shortness of breath 7. Swelling of one leg Refills of Control Pills You need to see a doctor every year for a refill of your prescription. This is necessary in order that your health can be monitored closely while you are taking control pills. If your prescription should before your next scheduled appointment you can usually get a one month extension from your doctors office if you call during regular business hours about one week before you need to start the new package of pills. This allows the physician to refer to your chart for necessary health information. documented in this encounter [facility] 12-27-2021 History of Presen t illness Narrative Jovita is a 31 year old who presents for an annual gynecologic exam without complaints. Accompanied by . Menses: irregular bleeding with Kyleena Contraception: IUD Kyleena. Would like to have IUD removed and return to [facility]. HPV vaccine: No Last Pap: 08/30/2016 normal HPV: N/A History of abnormal pap: No Last mammogram: never Sexually active: Yes History of STDS: None Patient concerns for STD exposure: No. 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 History LMP: 07/13/2018, IUD Age at Menarche: Age at First : Age at Menopause: Optical Fabrication Technician History Comments: Sexual Activity: Yes; Male Contraception: Pill PAST MEDICAL HISTORY Diagnosis Date Encounter for IUD insertion 05/15/2018 Kyleena Gestational diabetes mellitus, class A1 12/19/2016 PAST SURGICAL HISTORY Procedure Laterality Date INSERTION OF IUD 05/15/2018 LAPAROSCOPY SURG CHOLECYSTECTOMY 11/20/2018 Cholecystectomy, lap REP INIT INCI/VENTRAL HERNIA REDUCIBLE 07/25/2017 ventral hernia repair [place] TOOTH EXTRACTION Bilateral 2014 FAMILY HISTORY Problem Relation Age of Onset Diabetes Father SOCIAL HISTORY Social History Tobacco Use Smoking status: Never Smoker Smokeless tobacco: Never Used Substance Use Topics Alcohol use: No Drug use: No REVIEW OF SYSTEMS Abdomen: No abdominal pain, nausea, vomiting, diarrhea, or constipation. No bloating, early satiety, indigestion, or increased flatulence. Bladder: No dysuria, gross hematuria, urinary frequency, urinary urgency, or incontinence. Breast: No breast lumps, nipple d/c, overlying skin changes, redness or skin retraction. Allergies and current medication updated:Yes EXAM: BP 116/76 Wt 203 lb (92.1kg) LMP 07/13/2018 GENERAL: pleasant, female in no apparent distress HEENT: Normocephalic, atraumatic, mucus membranes moist and no lesions NECK: Supple, full range of motion, no adenopathy and thyroid normal DERMATOLOGY: Normal, without lesions, non-icteric and non-hirsute BREAST: declined CHEST: Normal inspiratory effort ABDOMEN: soft, non-tender and no masses PELVIC: external genitalia normal, normal Bartholin's glands, urethra, Menasha's glands, no vulvar lesions, no cervical lesions, good vaginal support, physiologic discharge present, normal appearing perineal body and perianal region. IUD strings visualized. BIMANUAL: uterus normal size, shape and consistency, no adnexal masses and non-tender RECTOVAGINAL: deferred. NEURO: alert and oriented x3,exam grossly non-focal EXTREMITIES: normal ASSESSMENT/PLAN: 1) Health maintenance: Pap done with HPV. Nutrition, exercise and routine health maintenance exams reviewed. HPV vaccine: declined 2. General counseling and advice for contraceptive management - ICD9: V25.09, ICD10: Z30.09 - Request IUD removal and to restart OCP - REMOVE INTRAUTERINE DEVICE 3. Encounter for BCP ( control pills) initial prescription - ICD9: V25.01, ICD10: Z30.011 - RX for Apri given today. - discussed with patient on how to take OCP's. Given written information - counseled on benefits, risks and possible severe side effects of OCP's. - discussed need to use Condoms to help to prevent STD's including HIV etc. - DESOGESTREL 0.15 MG-ETHINYL ESTRADIOL 0.03 MG TABLET 3) STD screening: Declined STD check. 4) Follow up for IUD removal and in 3 months OCP follow-up Sherry Maxwell APRN.ACADEMIC COACH documented in this encounter [facility] documented as of this encounter (statuses as of 12/27/2021) [facility]06-01-2017 History of Past illness Narrative* Problem Noted Date Resolved Date Abnormal glucose complicating 12/09/19 17 05/16/2017 Encounter for supervision of normal in multigravida in third trimester 08/23/2016 05/16/2017 documented as of this encounter (statuses as of 12/28/2021) [facility] History of Past illness Narrative* Problem Noted Date Resolved Date Abnormal glucose complicating 12/09/19 17 05/16/2017 Encounter for supervision of normal in multigravida in third trimester 08/23/2016 05/16/2017 documented as of this encounter (statuses as of 01/04/2022) [facility] History of Past illness Narrative* Problem Noted Date Resolved Date Abnormal glucose complicating 12/09/19 17 05/16/2017 Encounter for supervision of normal in multigravida in third trimester 08/23/2016 05/16/2017 documented as of this encounter (statuses as of 01/05/2022) [facility] History of Past illness Narrative* Problem Noted Date Resolved Date Abnormal glucose complicating 12/09/19 17 05/16/2017 Encounter for supervision of normal in multigravida in third trimester 08/23/2016 05/16/2017 documented as of this encounter (statuses as of 01/28/2022) [facility] History of Past illness Narrative* Problem Noted Date Resolved Date Abnormal glucose complicating 12/09/19 17 05/16/2017 Encounter for supervision of normal in multigravida in third trimester 08/23/2016 05/16/2017 documented as of this encounter (statuses as of 04/19/2022) [facility] History of Past illness Narrative* Problem Noted Date Resolved Date Abnormal glucose complicating 12/09/19 17 05/16/2017 Encounter for supervision of normal in multigravida in third trimester 08/23/2016 05/16/2017 documented as of this encounter (statuses as of 04/20/2022) [facility] History of Past illness Narrative* Problem Noted Date Resolved Date Abnormal glucose complicating 12/09/19 17 05/16/2017 Encounter for supervision of normal in multigravida in third trimester 08/23/2016 05/16/2017 documented as of this encounter (statuses as of 04/26/2022) [facility] History of Past illness Narrative* Problem Noted Date Resolved Date Abnormal glucose complicating 12/09/19 17 05/16/2017 Encounter for supervision of normal in multigravida in third trimester 08/23/2016 05/16/2017 documented as of this encounter (statuses as of 05/06/2022) [facility] History of Past illness Narrative* Problem Noted Date Diagnosed Date Resolved Date Abnormal glucose complicating 12/08/2016 05/16/2017 Encounter for supervision of normal in multigravida in third trimester 08/23/201605/16 documented as of this encounter (statuses as of 05/15/2023) [facility] Diagnosis Encounter for gynecological examination without abnormal finding- Primary Routine gynecological examination General counseling and advice for contraceptive management Other general counseling and advice for contraceptive management Encounter for BCP ( control pills) initial prescription General counseling for prescription of oral contraceptives Encounter for Papanicolaou smear for cervical cancer screening Special screening examination for human papillomavirus (HPV) [facility] Diagnosis Irregular bleeding- Primary Irregular menstrual cycle documented in this encounter [facility] note* Diagnosis Encounter for IUD removal- Primary Encounter for removal of intrauterine contraceptive device Vaginal discharge Leukorrhea, not specified as infective documented in this encounter [facility] note* Diagnosis Pelvic pressure in female- Primary Other specified symptom associated with female genital organs Hematuria, unspecified type Urinary frequency documented in this encounter [facility] note* Diagnosis Urinary frequency- Primary Pelvic pressure in female Other specified symptom associated with female genital organs Hematuria, unspecified type [facility] Diagnosis Pelvic pressure in female- Primary Other specified symptom associated with female genital organs Urinary frequency documented in this encounter [facility] for referral (narrative)* Outpatient Procedure (Routine) - Pending Review Specialty Diagnoses / Procedures Referred By Merna pérez Referred To Contact [facility] Diagnoses Irregular bleeding Procedures REMOVE INTRAUTERINE DEVICE REMOVE INTRAUTERINE DEVICE Alea Parikh APRN.CNP [address] [place] [address] [address] Referral ID Status Reason Start Date Expiration Date Visits Requested Visits Authorized [id number] Pending Review Auto-Generat ed Referral 12/28/2021 12/28/2022 1 1 [facility] for referral (narrative)* Outpatient Procedure (Routine) - Pending Review Specialty Diagnoses / Procedures Referred By Merna pérez Referred To Contact [facility] Diagnoses Encounter for IUD removal Procedures REMOVE INTRAUTERINE DEVICE REMOVE INTRAUTERINE DEVICE Sherry Maxwell APRN.CNP [address] [place] [address] [address] Referral ID Status Reason Start Date Expiration Date Visits Requested Visits Authorized [id number] Pending Review Auto-Generat ed Referral 01/04/2022 01/04/2023 1 1 [facility] for referral (narrative)* Diagnostic Procedure Only (Routine) - Authorized Specialty Diagnoses / Procedures Referred By Contac t Referred To Contact [facility] Diagnoses Hematuria, unspecified type Procedures US KIDNEY/BLADDER US RETROPERITONEAL REAL TIME W/IMAGE COMPLETE Chester Borges PA-C [address] [place] [address] [facility] Referral ID Status Reason Start Date Expiration Date Visits Requested Visits Authorized [id number] Authorized Auto-Generat ed Referral 05/26/2023 1 1 [facility] for referral (narrative)* - Pending Review Specialty Diagnoses / Procedures Referred By Contac t Referred To Contact Physical Therapy Diagnoses Pelvic pressure in female Urinary frequency Procedures CONSULT TO PHYSICAL THERAPY Chester Borges PA-C [address] [place] [address] Referral ID Status Reason Start Date Expiration Date V isits Requested Visits Authorized [id number] Pending Review 05/13/2022 08/11/2022 1 1 T [facility] Summary Purpose Family History No Family History Records FoundNo Family History Records FoundNo Family History Records FoundNo Family History Records FoundNo Family History Records FoundNo Family History Records FoundNo Family History Records Found Advance Directives No Advanced Directives Records FoundDocuments on File Type Date Recorded Patient Adult Education Manager Expl anation Advance Directive(s) 11/20/2018 8:09 AM Advance Directive(s) 07/25/2017 8:02 AM Documents on File Type Date Recorded Patient Adult Education Manager Expl anation Advance Directive(s) 11/20/2018 8:09 AM Advance Directive(s) 07/25/2017 8:02 AM Reason for Referral Specialty Diagnoses / Procedures Referred By Contac t Referred To Contact Urology Diagnoses Pelvic pressure in female Hematuria, unspecified type Urinary frequency Procedures CONSULT TO UROLOGY OFFICE/OUTPATIENT NEW HIGH MDM 60-74 MINUTES Sherry Maxwell APRN.ACADEMIC COACH [address] [place] [address] Referral ID Status Reason Start Date Expiration Date Visits Requested Visits Authorized [id number] Authorized PCP Requested Referral 2 04/19/2023 1 1 Additional Source Comments INFORMATION SOURCE (unrecogn ized section and content) DATE CREATED AUTHOR AUTHOR'S ORGANIZ ATION 09/26/2018 [employer] DATE CREATED AUTHOR AUTHOR'S ORGANIZ ATION 09/28/2018 [facility] DATE CREATED AUTHOR AUTHOR'S ORGANIZ ATION 12/01/2018 [facility] DATE CREATED AUTHOR AUTHOR'S ORGANIZ ATION 04/11/2021 [facility] DATE CREATED AUTHOR AUTHOR'S ORGANIZ ATION 10/10/2022 [facility] DATE CREATED AUTHOR AUTHOR'S ORGANIZ ATION 07/06/2023 [facility] Source Comments (unrecognize d section and content) In the event this informatio n is protected by the Federal Confidentiality of Alcohol and Drug Abuse Patient Records regulations: The Federal rules restrict any use of the information to criminally investigate or prosecute any alcohol or drug abuse patient.[facility] the event this information is protected by the Federal Confidentiality of Alcohol and Drug Abuse Patient Records regulations: The Federal rules restrict any use of the information to criminally investigate or prosecute any alcohol or drug abuse patient.[facility] the event this information is protected by the Federal Confidentiality of Alcohol and Drug Abuse Patient Records regulations: The Federal rules restrict any use of the information to criminally investigate or prosecute any alcohol or drug abuse patient.[facility] the event this information is protected by the Federal Confidentiality of Alcohol and Drug Abuse Patient Records regulations: The Federal rules restrict any use of the information to criminally investigate or prosecute any alcohol or drug abuse patient.[facility] the event this information is protected by the Federal Confidentiality of Alcohol and Drug Abuse Patient Records regulations: The Federal rules restrict any use of the information to criminally investigate or prosecute any alcohol or drug abuse patient.[facility] the event this information is protected by the Federal Confidentiality of Alcohol and Drug Abuse Patient Records regulations: The Federal rules restrict any use of the information to criminally investigate or prosecute any alcohol or drug abuse patient.[facility] the event this information is protected by the Federal Confidentiality of Alcohol and Drug Abuse Patient Records regulations: The Federal rules restrict any use of the information to criminally investigate or prosecute any alcohol or drug abuse patient.[facility] the event this information is protected by the Federal Confidentiality of Alcohol and Drug Abuse Patient Records regulations: The Federal rules restrict any use of the information to criminally investigate or prosecute any alcohol or drug abuse patient.Prem[facility] HealthIn the event this information is protected by the Federal Confidentiality of Alcohol and Drug Abuse Patient Records regulations: The Federal rules restrict any use of the information to criminally investigate or prosecute any alcohol or drug abuse patient.Prem[facility] HealthIn the event this information is protected by the Federal Confidentiality of Alcohol and Drug Abuse Patient Records regulations: The Federal rules restrict any use of the information to criminally investigate or prosecute any alcohol or drug abuse patient.[facility] Reason for Visit (unrecogniz ed section and content) Reason Onset Date Comments IUD Removal 01/04/2022 Specialty Diagnoses / Procedures Referred By Contac t Referred To Contact [facility] Diagnoses Irregular bleeding Encounter for removal of intrauterine contraceptive device Procedures REMOVE INTRAUTERINE DEVICE REMOVE INTRAUTERINE DEVICE LEVONORGESTREL-RELEASING INTR CONTRACEPTIVE (KYLEENA), 19.5 MG Aela Parikh, 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 [address] [place] [address] [facility] [address] [place] [address] Referral ID Status Reason Start Date Expiration Date V isits Requested Visits Authorized [id number] Closed Auto-Generate d Referral 12/29/2021 07/09/2022 1 1 Reason Comments Results Reason Comments Vaginal Bleeding Reason Comments Pelvic Pain Reason Comments Consult New Patient Specialty Diagnoses / Procedures Referred By Contac t Referred To Contact Urology Diagnoses Pelvic pressure in female Hematuria, unspecified type Urinary frequency Procedures CONSULT TO UROLOGY OFFICE/OUTPATIENT NEW HIGH MDM 60-74 MINUTES 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 Maxwell, 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 [address] [place] [address] Referral ID Status Reason Start Date Expiration Date V isits Requested Visits Authorized [id number] Closed PCP Requested Referral 04/19/2022 04/19/2023 1 1 Reason Comments Radiology US Specialty Diagnoses / Procedures Referred By Contac t Referred To Contact US IMAGING Diagnoses Hematuria, unspecified type Procedures US KIDNEY/BLADDER US RETROPERITONEAL REAL TIME W/IMAGE COMPLETE Chester Borges PA-C [address] [place] [address] Us Imaging [id number] Referral ID Status Reason Start Date Expiration Date V isits Requested Visits Authorized [id number] Closed Auto-Generate d Referral 04/26/2022 05/26/2023 1 1 <item> Privacy Markings (unrecogniz ed section and content) Section Author: Alicia Vogel PROHIBITION ON REDISCLOSURE OF CONFIDENTIAL INFORMATION This notice accompanies a disclosure of information concerning a client made to you with the consent of such client. FOR RECORDS PERTAINING TO PATIENTS WHO ARE OR HAVE BEEN ENROLLED IN A CHEMICAL DEPENDENCY/SUBSTANCEABUSE PROGRAM, SOME INFORMATION MAY BE OMITTED. This clinical summary was aggregated from multiple sources. Caution should be exercised in using it in the provision of clinical care. This summary normalizes information from multiple sources, and as a consequence, information in this document may materially change the coding, format and clinical context of patient data. In addition, data may be omitted in some cases. CLINICAL DECISIONS SHOULD BE BASED ON THE PRIMARY CLINICAL RECORDS. [facility]. provides no warranty or guarantee of the accuracy or completeness of information in this document.
== END 2023-09-21 18:30 | disposition home or self-care (01) ==
PROVIDERS: Emergency Provider Emergency Medicine; Visit Provider Emergency Medicine
DX: E11.65 Type 2 diabetes mellitus with hyperglycemia (principal); Z90.49 Acquired absence of other specified parts of digestive tract
CPT/HCPCS: 80053; 81001; 81025; 82009; 82803; 82962; 83036; 83690; 85025; 93005; 96360; 99284; J7030; A4216

== ENCOUNTER 2024-01-20 20:58 | Emergency (ER) | payer MEDICAID, SELFPAY ==
[2024-01-20 20:59] VITALS: BP 137/103; PULSE 120; RESP 16; TEMP 36.2; O2SAT 100; BMI 32.0
--- NOTE | 2024-01-20 21:28 | EDS_ITS ---
HPI History of Present Illness Chief Complaint: Sore Throat Informant: patient Onset/Context/Timing Onset: Yesterday Narrative Narrative: Patient presents with dry, scratchy throat. She states that she feels like the posterior pharynx is irritated and she has some drainage. She is concerned that she may have early strep throat. She has had no fever or chills. She does admit that she has a lot of anxiety. She did take a dose of hydroxyzine yesterday which helped, but did seem to dry her up even more. [facility] Medical History Anxiety Non-smoker Migraines Home Medications ?Medication ?Instructions ?Recorded ?Last Taken ?Type naproxen 500 mg tablet 500 mg PO BID PRN #20 tabs 09/17/18 Unknown Rx ibuprofen 800 mg tablet 800 mg PO TID PRN PRN Pain #20 tabs 11/08/18 Unknown Rx ondansetron 4 mg disintegrating 4 mg PO Q8H PRN PRN Nausea #10 tabs 11/08/18 Unknown Rx tablet amoxicillin 875 mg-potassium 875 mg PO Q12H #14 TABLETS 12/29/20 Unknown Rx clavulanate 125 mg tablet amoxicillin 500 mg capsule 500 mg PO Q12H #20 caps 05/13/23 Unknown Rx Allergy/AdvReac Type Severity Reaction Status Date / Time morphine AdvReac Itching Verified 01/20/24 20:59 Surgical History H/O umbilical hernia repair History of cholecystectomy Social History Smoking Status: Never smoker ROS ROS ED Constitutional Constitutional ED: Denies chills or fever(s) Eyes Eyes: Denies discharge from eye(s) ENT ENT ED: Reports sore throat; Denies discharge from eye(s) or rhinorrhea Cardiovascular Cardiovascular: Denies chest pain Respiratory/Chest Respiratory/Chest: Denies cough or dyspnea Gastrointestinal Gastrointestinal: Denies abdominal pain Musculoskeletal Musculoskeletal: Denies back pain or extremity pain Integumentary Denies Abrasions or rash Neurologic Neurologic: Denies headache(s) or weakness Allergic/Immunologic Allergic/Immunologic ED: Denies lip swelling or urticaria EXAM Physical Exam Narrative Exam Narrative: Patient sitting upright in bed no acute distress. Speaking with a strong voice and tolerating secretions well. Const Vital Signs: 01/20/24 20:59 Temperature 97.1 F L Temperature Source Temporal Pulse Rate 120 H Respiratory Rate 16 Blood Pressure 137/103 H Blood Pressure Mean 114 Pulse Ox 100 Oxygen Delivery Method Room Air Positive well nourished and well developed General Appearance ED: well developed HEENT Reports dry mucous membranes HEENT Narrative: Mild cobblestoning of the posterior pharynx. Uvula midline with no significant enlargement. Mouth ED: Yes dry mucous membranes Mouth: dry mucous membranes Eyes EOMs intact bilaterally Chest Wall inspection of chest normal and palpation of chest normal Resp normal respiratory effort and clear to auscultation bilaterally Cardio regular rate and regular rhythm GI non-tender Palpation: soft Extremity normal to inspection Neuro oriented x3 and no sensory deficits noted Motor Exam: strength 5/5 throughout Skin no rashes or lesions noted MDM MDM MDM Narrative Medical decision making narrative: Rapid strep obtained. Patient given a dose of Ativan along with a GI cocktail. Treatment and Re-Evaluation :: Rapid strep test is negative. Patient has not yet been given her medication, but will be given this prior to discharge. Patient followed with a primary care physician. Discharge Plan Triage Chief Complaint: Sore Throat ED Provider: Krystle Lu Dx/Rx/DC Orders Clinical Impression: Pharyngitis Instructions: Self-Care for Sore Throats Prescriptions: No Action naproxen 500 MG tablet 500 mg PO BID PRN Qty: 20 0RF ibuprofen 800 MG tablet 800 mg PO TID PRN PRN (Reason: Pain) Qty: 20 0RF ondansetron 4 MG tablet 4 mg PO Q8H PRN PRN (Reason: Nausea) Qty: 10 0RF amoxicillin-pot clavulanate [amoxicillin-pot clavulanate] 875 MG tablet 875 mg PO Q12H Qty: 14 0RF amoxicillin 500 mg capsule 500 mg PO Q12H Qty: 20 0RF Primary Care Provider: Kvng Wahl Referrals: Kvng Wahl MD [Primary Care Provider] - 1 Week if not improving Print Language: Romanian Disposition Disposition: Home, Self Care
[2024-01-20] MEDS: Lidocaine 2% Viscous15 ML UDC 15 ML PO (22:31)
[2024-01-20] MEDS: Mag Hydrox/Al Hydrox/Simeth 30 ML UDC PO (22:31)
[2024-01-20] MEDS: LORazepam 0.5 MG Tablet PO (22:31)
[2024-01-20 22:34] VITALS: BP 130/78; PULSE 79; RESP 16; TEMP 36.6; O2SAT 99
== END 2024-01-20 22:35 | disposition home or self-care (01) ==
PROVIDERS: Emergency Provider Emergency Medicine; PCP Family Medicine; Visit Provider Emergency Medicine
DX: J02.9 Acute pharyngitis, unspecified (principal); F41.9 Anxiety disorder, unspecified
CPT/HCPCS: 87651; 99282

== ENCOUNTER 2024-01-22 13:27 | Emergency (ER) | payer MEDICAID, SELFPAY ==
[2024-01-22 13:29] VITALS: BP 130/116; PULSE 115; RESP 16; TEMP 36.2; O2SAT 97
== END 2024-01-22 17:25 | disposition left against medical advice (07) ==
LOC: ED 17:34
PROVIDERS: PCP Family Medicine
DX: J02.9 Acute pharyngitis, unspecified (principal)

== ENCOUNTER 2024-01-24 15:15 | Emergency (ER) | payer MEDICAID, SELFPAY ==
[2024-01-24 15:16] VITALS: BP 125/86; PULSE 84; RESP 18; TEMP 36.6; O2SAT 99; BMI 30.9
--- NOTE | 2024-01-24 16:16 | EDS_ITS ---
HPI History of Present Illness Chief Complaint: Sore Throat [facility] Medical History Anxiety Non-smoker Migraines Home Medications ?Medication ?Instructions ?Recorded ?Last Taken ?Type naproxen 500 mg tablet 500 mg PO BID PRN #20 tabs 09/17/18 Unknown Rx ibuprofen 800 mg tablet 800 mg PO TID PRN PRN Pain #20 tabs 11/08/18 Unknown Rx ondansetron 4 mg disintegrating 4 mg PO Q8H PRN PRN Nausea #10 tabs 11/08/18 Unknown Rx tablet amoxicillin 875 mg-potassium 875 mg PO Q12H #14 TABLETS 12/29/20 Unknown Rx clavulanate 125 mg tablet amoxicillin 500 mg capsule 500 mg PO Q12H #20 caps 05/13/23 Unknown Rx Allergy/AdvReac Type Severity Reaction Status Date / Time morphine AdvReac Itching Verified 01/24/24 16:11 Surgical History H/O umbilical hernia repair History of cholecystectomy Social History Smoking Status: Never smoker EXAM Physical Exam Const Vital Signs: 01/24/24 15:16 Temperature 97.8 F Temperature Source Temporal Pulse Rate 84 Respiratory Rate 18 Blood Pressure 125/86 H Blood Pressure Mean 99 Pulse Ox 99 Oxygen Delivery Method Room Air [facility] MDM MDM Narrative Medical decision making narrative: HISTORY OF PRESENT ILLNESS: Patient presents with sore throat. Notes 4 days of sore throat. Notes pain with swallowing. Notes this occurred after eating a sour patch kids. Denies any sick contacts. Denies fever. Denies drooling. Denies chest pain or neck stiffness. REVIEW OF SYSTEMS: Pertinent positives: Sore throat Pertinent negatives: Drooling, neck stiffness, shortness of breath, chest pain, vomiting PHYSICAL EXAM: Nursing triage notes reviewed, Vital signs reviewed Constitutional: please see mdm HENT: MMM, no submandibular edema or induration, uvula midline, bilateral TMs pearly zapien with no hyperemia or middle ear effusion, no mastoid tenderness, no trismus, no pharyngeal erythema. Eyes: Pupils equal round and reactive to light, Extraocular muscles intact Neck: No stridor, no JVD, full neck ROM Lungs: Clear to auscultation, No wheezing or rales. No increased work of br eathing, no conversational dyspnea, no accessory muscle use, no nasal flaring. No respiratory distress noted. The patient speaking full sentences. Heart: Regular rate and rhythm, No murmurs, No rubs and No gallops, 2+ distal pulses (radial, femoral, posterior tibial) in all extremities Skin: No rash or lesions noted MEDICAL DECISION MAKING: Chief Complaint: Sore throat External records reviewed: Reviewed prior ED note Factors affecting care: Anxiety Social determinants of health: None History obtained from others: None Consults: None [facility] Narrative: The patient was hemodynamically stable, afebrile, nontoxic-appearing. She is speaking in full sentences. There is no signs of airway compromise at this time. Gave GI cocktail for symptomatic relief. Encouraged [id number] topical anesthetics as risk of lidocaine is too high. I considered the following differential diagnosis: Bacterial versus viral pharyngitis, RPA, DYE REEL OPERATOR HELPER, Lemierre's syndrome, Boris's angina. There is no clinical evidence of RPA, DYE REEL OPERATOR HELPER, Lemierre's syndrome along with and at this time. Patient will be given prophylactic antibiotics. The patient was given strict return precautions and follow-up instructions. I suspect the patient's presentation is secondary to local mucosal irritation from reported sour patch kids incident. Encouraged Tylenol ibuprofen. The patient and/or family, caregivers express understanding. The patient and/or family, caregivers agrees with the plan. Total critical care time today provided was at least 0 minutes. This excludes separately billable procedures. Critical care time if documented is secondary to the patient having high probability of clinically significant/life threatening deterioration in the patient's condition which required my urgent intervention. Shared decision making: I will have a discussion with the patient and or visitors regarding risk/benefits of further testing or admission. They will be made aware of of the risk/benefits inherent in this decision they will be given the opportunity to voice understanding. Impression: 1. Viral pharyngitis 2. Sore throat Disposition: Discharge home This note was generated with [employer] dictation software. It may contain incorrect words, spelling, and punctuation that were not noted in review of the chart prior to signing. Discharge Plan Triage Chief Complaint: Sore Throat ED Provider: Anmol Parkinson Dx/Rx/DC Orders Clinical Impression: Pharyngitis Instructions: ED Pharyngitis, Viral Prescriptions: No Action naproxen 500 MG tablet 500 mg PO BID PRN Qty: 20 0RF ibuprofen 800 MG tablet 800 mg PO TID PRN PRN (Reason: Pain) Qty: 20 0RF ondansetron 4 MG tablet 4 mg PO Q8H PRN PRN (Reason: Nausea) Qty: 10 0RF amoxicillin-pot clavulanate [amoxicillin-pot clavulanate] 875 MG tablet 875 mg PO Q12H Qty: 14 0RF amoxicillin 500 mg capsule 500 mg PO Q12H Qty: 20 0RF Primary Care Provider: Kvng Wahl Referrals: Kvng Wahl MD [Primary Care Provider] - Activity Restrictions/Additional Instructions: Thank you for trusting us with your care today! Please take Tylenol (2 pills, 650 mg), ibuprofen (2 pills, 400 mg) every 6 hours as needed for pain and fever control. Please return to the emergency department if your symptoms change or worsen. Specifically if you develop drooling, difficulty swallowing, difficulty breathing, vomiting, chest pain, neck stiffness, fever. Please follow with your primary care physician for further outpatient evaluation and management. Print Language: [place] Island[place] Disposition Disposition: Home, Self Care
[2024-01-24] MEDS: Lidocaine 2% Viscous15 ML UDC 15 ML PO (17:01)
[2024-01-24] MEDS: Mag /Aluminum/Simeth WCH UDC 30 ML ORAL.SUSP PO (17:01)
== END 2024-01-24 17:07 | disposition home or self-care (01) ==
PROVIDERS: Emergency Provider Emergency Medicine; PCP Family Medicine; Visit Provider Emergency Medicine
DX: J02.8 Acute pharyngitis due to other specified organisms (principal); B97.89 Other viral agents as the cause of diseases classified elsewhere; F41.9 Anxiety disorder, unspecified; Z90.49 Acquired absence of other specified parts of digestive tract
CPT/HCPCS: 99282

== ENCOUNTER 2025-04-11 16:57 | Outpatient (CLI) | payer MEDICAID, SELFPAY ==
[2025-04-11 19:40] LABS: Creatinine, Urine (random) 126.00 mg/dL (28.00-217.00)
[2025-04-11 19:52] LABS: Microalbumin,Random Urine 764.0 mg/L (<20 mg/L)
== END 2025-04-11 23:59 | disposition home or self-care (01) ==
PROVIDERS: PCP Family Medicine; Referring Provider Family Medicine; Visit Provider Family Medicine
DX: E11.9 Type 2 diabetes mellitus without complications (principal)
CPT/HCPCS: 82043; 82570